=== PATIENT | female | born 1960 ===

== ENCOUNTER 2025-05-18 19:51 | Emergency (ER) | payer MEDICARE, SELFPAY ==
--- OUTSIDE RECORDS SUMMARY | 2025-05-18 19:53 | XMS_ITS | Continuity of Care Document ---
Author Organization [facility] Address [address] [place] [address] Phone Care Team Providers Care Paper Stacker Name Role Phone Unavailable Unavailable Unavailable Allergies, Adverse Reactions, Alerts Substance Reaction Status Criticality aspirin Active No Information Medications Medication Instructions Dosage Effective Dates (start - stop) Status Comments losartan 25 mg tablet take 1 tablet by o ral route every day for HTN 25 MG - Active levothyroxine 150 mcg tablet take 1 tablet by oral route every day 150 MCG - Active Miralax 17 gram/dose oral powder take (17G) by oral route every day mixed with 8 oz. water, juice, soda, coffee or tea - Active Culturelle Probiotics 10 billion cell-200 mg sprinkle capsule 2 PO daily - Active Dulcolax Stool Softener (docusate) 100 mg capsule take 1 capsule by oral route 2 times every day 100 MG - Active Procedures Procedure Date OFFICE/OUTPATIENT VISIT, EST OFFICE/OUTPATIENT VISIT, EST OFFICE/OUTPATIENT VISIT, EST OFFICE/OUTPATIENT VISIT, EST GLYCATED HEMOGLOBIN TEST OFFICE/OUTPATIENT VISIT, NEW Results Test Name Date and Time Measure Units Reference Range Abnormal Flag Status Comments Panel Description: HEPATITIS C VIRUS AB Final Ordering Provider SEE COMMENT Final Original Orderi ng Provider: SHARONA MOORE HEPATITIS C VIRUS AB 2018 09:09:0 0 SEE COMMENT Final 0.1 Negative: < 0.8 Indeterminate: 0.8 - 0.9 Positive: > 0.9 The CDC recommends that a positive HCV antibody result be followed up with a HCV Nucleic Acid Amplification test ([id number]).ORGANISM: Antibiotic LURDES InterpretationWHITE BLOOD CELL COUNT [facility] 5.5RED BLOOD CELL COUNT [facility] 4.77HEMOGLOBIN [facility] 15.2HEMATOCRIT BLOOD [facility] 44.0MCV [facility] 92MCH [facility] 31.9MCHC [facility] 34.5RDW [facility] 13.6PLATELET COUNT [facility] 275NEUTROPHILS RELATIVE AUTO [facility] 62LYMPHOCYTES RELATIVE AUTO [facility] 28MONOCYTES RELATIVE AUTO [facility] 8EOSINOPHILS RELATIVE AUTO [facility] 2BASOPHILS RELATIVE AUTO [facility] 0NEUTROPHIL ABS AUTO [facility] 3.4LYMPHOCYTE ABS AUTO [facility] 1.5MONOCYTE ABS AUTO [facility] 0.4EOSINOPHIL ABS AUTO [facility] 0.1BASOPHILS ABS AUTO [facility] 0.0IMMATURE GRANULOCYTES 0IMMATURE GRANS (ABS) 0.0ORGANISM: Antibiotic LURDES InterpretationGLUCOSE 154BUN BLOOD 13CREATININE, SERUM 0.60EGFR IF NONAFRICN AM 100EGFR AFRICANAMERICAN 115BUN / CREAT RATIO 22SODIUM 146POTASSIUM 4.1CHLORIDE 104CARBON DIOXIDE 24CALCIUM 9.9PROTEIN, TOTAL, SERUM 7.1ALBUMIN 4.2GLOBULIN, TOTAL 2.9A/G RATIO 1.4BILIRUBIN, TOTAL 0.2ALKALINE PHOSPHATASE, S 92AST (SGOT) 11ALT (SGPT) 17ORGANISM: Antibiotic LURDES InterpretationCHOLESTEROL , TOTAL 200TRIGLYCERIDES 118HDL CHOLESTEROL 51VLDL CHOLESTEROL CAITLYN 24LDL CHOLESTEROL CALC 125ORGANISM: Antibiotic LURDES InterpretationCREATININE, UR 69.0MICROALBUM.,U,RANDOM 10.0MICROALB/KINDERGARTNERS HELPER. RATIO 14.5 Normal: 0.0 - 30.0 Albuminuria: 31.0 - 300.0 Clinical albuminuria: >300.0ORGANISM: Antibiotic LURDES InterpretationHEMOGLOBIN A1C, B 7.5 Prediabetes: 5.7 - 6.4 Diabetes: >6.4 Glycemic control for adults with diabetes: <7.0ORGANISM: Antibiotic LURDES InterpretationVITAMIN D 25 HYDROXY 19.7Vitamin D deficiency has been defined by the [place] ofMedicine and an Endocrine Society practice guideline as alevel of serum 25-OH vitamin D less than 20 ng/mL (1,2).The Endocrine Society went on to further define vitamin Dinsufficiency as a level between 21 and 29 ng/mL (2).1. IOM ([place] of Medicine). 2010. Dietary reference intakes for calcium and D. [place]: The National Academies Press.2. Lynette MF, Soraya HORTON, Byron AC, et al. Evaluation, treatment, and prevention of vitamin D deficiency: an Endocrine Society clinical practice guideline. JCEM. 2010; 96(7):1911-30.ORGANISM: Antibiotic LURDES InterpretationTHYROID STIMULATING HORMONE 0.443ORGANISM: Antibiotic LURDES InterpretationT4,FREE (DIRECT) 1.61ORGANISM: Antibiotic LURDES InterpretationVITAMIN B-12 <150Performed At: 01[facility], [place] [id number] Vincent [id number] 1, Advance Directives Directive Yes / No Effective Date File Name No Information Encounters Encounter Description Practice Location Reason(s) For Visit Diagnoses Date Provider Providers Copied on Encounter Formerly [facility] [address], [facility], tel:[phone] No Information 9 No Information Formerly [facility] [address], [facility], tel:[phone] [facility] No Information 6 No Information OFFICE/OUTPA TIENT VISIT, [facility] [employer] [facility] Of [address], [facility], tel:[phone] [facility] hypertension (chief complaint)Sle ep apnea (chief complaint)con stipation (chief complaint) HypertensionSl eep apneaConstipat ion 6 No Information OFFICE/OUTPA TIENT VISIT, [facility] Of [address], [facility], tel:[phone] [facility] rash (chief complaint) Allergic contact dermatitis due to other agents 6 No Information OFFICE/OUTPA TIENT VISIT, [facility] [employer] Of [address], [address], [place] tel:[phone] [facility] hypertension (chief complaint) HypertensionAr thritisHypothy roidism 6 No Information OFFICE/OUTPA TIENT VISIT, [facility] [employer] Of [address], [address], [place] tel:[phone] [facility] hypertension (chief complaint)ank le pain (chief complaint) HypertensionSp rain of ankle, initial encounter 5 No Information OFFICE/OUTPA TIENT VISIT, [facility] [employer] [facility] Of [address], [address], [place] tel:[phone] [facility] possible diabetes (chief complaint)HTN (chief complaint) HypertensionHy pothyroidismAb normal glucoseSleep apnea 5 No Information Family History Family Member Type Diagnosis Age At Onset No Information Immunizations Vaccine Date Status Comments Influenza, injectable, quadrivalent, preservative free, 3 yrs or older refused Source: New Immuniza tion Record Payers Payer name Insurance type Covered republican ID Authoriza tion(s) No Information Social History Type Description Quantity Date Captured Comments Sex Female Smoking Status No Information Chief Complaint And Reason For Visit No Information Reason For Referral Reason For Referral No Information Plan Of Treatment Date Type Action Status Goal Td vaccine. Due on 16 due Goal Influenza vaccine. Due on due Goal Lipid panel. Due on 016 due Goal Colonoscopy. Due on 016 due Goal Mammogram. Due on 6 due Goal FOBT. Due on due Goal Pap/HPV testing. Due on due Goal Tdap. Due on due Goal Influenza vaccine. Due on due Goal Pap/HPV testing. Due on due Goal FOBT. Due on due Goal Depression screening. Due on due Goal Tdap. Due on due Goal Mammogram. Due on 6 due Goal Td vaccine. Due on 16 due Goal Lipid panel. Due on 016 due Goal Colonoscopy. Due on 016 due Referral Ordered: X-RAY EXAM OF ANKLE Right ankle ordered Referral Ordered: Referrals: Pulmonology. Evaluate and treat ordered History Of Present Illness Encounter Date Complaint History Of Prese nt Illness constipation The patient desc ribes it as feeling of fullness. Symptom is aggravated by dehydration and stress. Denies relieving factors. She is also experiencing abdominal pain, bloating and flatulence. Pertinent negatives include change in appetite, nausea and vomiting. Sleep apnea Relevant history : a BMI of 35.08 and hypertension. The apnea is worsened by stress. The patient is also experiencing insomnia, snoring (reported by pt.), snoring (reported by others) and witnessed apnea or irregular nighttime breathing. The patient denies difficulty concentrating, difficulty initiating sleep or headache. Additional information: Controlled. Pt sees pulmonology but wanted to discuss relationship with HTN and sleep. hypertension Risk factors inc lude sleep apnea. The hypertension is exacerbated by stress. Associated symptoms include fatigue. Pertinent negatives include chest pain, confusion, diaphoresis, headache, nausea, visual disturbances and vomiting. Additional information: Controlled rash The patient pres ents for rash. This episode began suddenly and has lasted 1 Day. The symptom(s) are described as mild, worse and occurs infrequently. Affected area(s) include chest, back, trunk and abdomen. The patient describes the affected area(s) as itchy. Denies relieving factors. Associated symptoms include pruritus. Pertinent negatives include bleeding, cracking, crusting, dry skin, fatigue, hypopigmentation, painful rash and pharyngitis. There are no other household members with similar symptoms. Relevant history positive for history of allergies. Relevant history negative for family history of dermatitis. Additional information: History of shingles. Rash is in different location. Pt has been working in basement moving and packing boxes. hypertension Pertinent negati ves include chest pain, dyspnea, fatigue, headache, irregular heartbeat/palpitations, nausea, visual disturbances and vomiting. Additional information: Controlled. Doing well. hypertension Pertinent negati ves include chest pain, confusion, dyspnea, headache, nausea, visual disturbances and vomiting. ankle pain Onset: 2 weeks a go. Severity level is mild-moderate. It occurs constantly and is worsening. Location: right ankle. The pain is aggravated by movement, walking and standing. The pain is relieved by rest. Associated symptoms include decreased mobility, joint tenderness, swelling and weakness. Pertinent negatives include bruising. Additional information: Fell 2 weeks ago. Ankle painful during day. possible diabetes Had previous a bnormal glucose. Pt has high BP. Sleep apnea. HTN Controlled. Pt l ooking to establish care Functional Status Date Functional Assessmen t No Information Instructions Date Instruction Additional Infor karel Treatment goal: BP under 140/90 by next visit Related to Hypertension Treatment goal: BP under 140/90 by next visit Related to Hypertension Self-mgt goal: exerc ise 5 times a week for 30 minutes Related to Hypertension DASH Diet discussed Related to H ypertension Treatment goal: BP under 140/90 by next visit Related to Hypertension Assessments Type Assessment Date No Information Patient Care Teams Name Effective Dates (start - stop) Status Members No Information
--- OUTSIDE RECORDS SUMMARY | 2025-05-18 19:53 | XMS_ITS | Clinical Summary ---
Author Organization [facility] Health Address [address] [place] [address] Care Team Providers Care Mining Speculator Name Role Phone Unavailable Primary Care Provider Unavailabl e Allergies No known active allergies Medications metFORMIN (GLUCOPHAGE) 500 mg tablet Take 500 mg by mouth in the morning and 500 mg in the evening. Take with meals. 03/13/2022 Active losartan (COZAAR) 50 mg tablet Take 50 mg by mouth 1 (one) time each day. 04/01/2022 Active levothyroxine (SYNTHROID, LEVOTHROID) 125 mcg tablet Take 125 mcg by mouth every morning. 02/02/2022 Active Active Problems No known active problems Social History Tobacco Use Types Packs/Day Years Used Date Smoking Tobacco: Never Smokeless Tobacco: Never Tobacco Cessation:Counseling Given: Not Answered Alcohol Use Standard Drinks/Week Comments Never 0 (1 standard drink = 0.6 oz pur e alcohol) Comments Unknown Sex and Gender Information Value Date Recorded Sex Assigned at Not on file Legal Sex Female 9:59 AM PDT Gender Identity Not on file Sexual Orientation Not on file Last Filed Vital Signs Vital Sign Reading Time Taken Comments Blood Pressure 134/89 05/08/2022 10:18 AM CDT Pulse 76 05/08/2022 10:18 AM CDT Temperature - - Respiratory Rate - - Oxygen Saturation - - Inhaled Oxygen Concentration - - Weight - - Height - - Body Mass Index - - Plan of Treatment Health Maintenance Due Date Last Done Comments Dental Prophylaxis 1960 Dental Oral Exam 11/08/2022 05/08/2022 Dental X-Ray: Bitewings 11/08/2022 05/08/2022 Dental X-Ray: Full Mouth 05/10/2025 05/09/2022, 04/19 Dental X-Ray: Panoramic 05/10/2025 05/09/2022, 05/08 Procedures Procedure Name Priority Date/Time Associated Diagnosis Comments PANORAMIC RADIOGRAPHIC IMAGE Routine 05/08/2022 10:15 AM CDT INTRAORAL - COMPREHENSIVE SERIES OF RADIOGRAPHIC IMAGES Routine 05/08/2022 10:15 AM CDT COMPREHENSIVE ORAL EVALUATION - NEW OR ESTABLISHED PATIENT Routine 05/08/2022 10:15 AM CDT from Last 3 Months or Most Recently Relevant to Health Maintenance Insurance [facility] [place] [id number]
--- OUTSIDE RECORDS SUMMARY | 2025-05-18 19:53 | XMS_ITS | Encounter Summary ---
Author Organization [facility] Health Address [address] [place] [address] Care Team Providers Care Detective Investigator Name Role Phone Unavailable Primary Care Provider Unavailabl e Prior Encounters Date Type Department Care Team Description 05/08/2022 Travel 05/08/2022 10:15 AM CDT Office Visit [facility] [address] [place] [address] DemetrialAshia glasgow, DDS Last Filed Vital Signs Vital Sign Reading Time Taken Comments Blood Pressure 134/89 05/08/2022 10:18 AM CDT Pulse 76 05/08/2022 10:18 AM CDT Temperature - - Respiratory Rate - - Oxygen Saturation - - Inhaled Oxygen Concentration - - Weight - - Height - - Body Mass Index - - Plan of Treatment Not on file Procedures Procedure Name Priority Date/Time Associated Diagnosis Comments PANORAMIC RADIOGRAPHIC IMAGE Routine 05/08/2022 10:15 AM CDT INTRAORAL - COMPREHENSIVE SERIES OF RADIOGRAPHIC IMAGES Routine 05/08/2022 10:15 AM CDT COMPREHENSIVE ORAL EVALUATION - NEW OR ESTABLISHED PATIENT Routine 05/08/2022 10:15 AM CDT 31 MO COMPOSITE FILLING Routine 05/08/20 22 12:00 AM CDT 30 CEREC CROWN Routine 05/08/2022 12:00 AM CDT 29 DO COMPOSITE FILLING Routine 05/08/20 22 12:00 AM CDT 20 DO COMPOSITE FILLING Routine 05/08/20 22 12:00 AM CDT 19 CEREC CROWN Routine 05/08/2022 12:00 AM CDT 18 MO COMPOSITE FILLING Routine 05/08/20 22 12:00 AM CDT 15 MO COMPOSITE FILLING Routine 05/08/20 22 12:00 AM CDT 14 PFM CROWN Routine 05/08/2022 12:00 AM CDT 14 ROOT CANAL Routine 05/08/2022 12:00 AM CDT 13 CEREC CROWN Routine 05/08/2022 12:00 AM CDT 5 DO COMPOSITE FILLING Routine 12:00 AM CDT 4 CEREC CROWN Routine 05/08/2022 12:00 AM CDT 3 MOB COMPOSITE FILLING Routine 05/08/20 12:00 AM CDT 2 O AMALGAM FILLING Routine 05/08/2022 1 2:00 AM CDT Visit Diagnoses Not on file [facility] [place] [id number]
--- OUTSIDE RECORDS SUMMARY | 2025-05-18 19:54 | XMS_ITS | Referral Summary ---
Author Organization [address] Address [facility] [place] [address] Care Team Providers Care Windows Server Engineer Name Role Phone Jhon Jang MD Primary Care Provider [phone] Encounters Date Type Department Care Team Description 05/18/2025 Telephone [facility] Cardiology [address] [place] [address] [phone] Nick Green MD 03/11/2025 10:45 AM CDT Office Visit [facility] Cardiology [address] [place] [address] [phone] Nick Green MD Atypical chest pain (Primary Dx); 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; Essential hypertension, benign; Pure hypercholesterolemia 02/16/2025 Telephone [facility] Cardiology [address] [place] [address] [phone] Nick Green MD from Last 3 Months Allergies No known active allergies Medications levothyroxine (SYNTHROID) 125 mcg tablet Take 1 tablet (125 mcg total) by mouth casing running machine tender before breakfast 2 Active metFORMIN (GLUCOPHAGE) 500 mg tablet Take 1 tablet (500 mg total) by mouth daily with breakfast 2 Active empagliflozin (JARDIANCE) 25 mg tablet 1 tablet (25 mg total) daily Active atorvastatin (LIPITOR) 40 mg tablet Take 1 tablet (40 mg total) by mouth daily Active losartan (COZAAR) 50 mg tablet Take 1 tablet (50 mg total) by mouth daily 2 Active ticagrelor (BRILINTA) 90 mg tablet Take 1 tablet (90 mg total) by mouth 2 (two) times a day 60 tablet 11 5 Active aspirin 81 mg enteric coated tabletIndication s:cardiovascular disease Take 1 tablet (81 mg total) by mouth daily 30 tablet 5 Active loperamide (IMODIUM) 2 mg capsule Take 1 capsule (2 mg total) by mouth 4 (four) times a day as needed for diarrhea 30 capsule 5 Active potassium chloride ER (KLOR-CON) 20 mEq CR tablet Take 1 tablet (20 mEq total) by mouth daily 30 tablet 5 Active benzonatate (TESSALON) 100 mg capsuleIndicatio ns:Cough Take 1 capsule (100 mg total) by mouth 3 (three) times a day as needed for cough 21 capsule 5 Active isosorbide mononitrate ER (IMDUR) 30 mg 24 hr tablet Take 1 tablet (30 mg total) by mouth daily 30 tablet [address] (PROTONIX) 40 mg EC tabletIndication s:Treatment of Non-Bleeding Gastric Disorder Take 1 tablet (40 mg total) by mouth 2 (two) times a day 60 tablet 5 Active carvediloL (COREG) 6.25 mg tablet Take 1 tablet (6.25 mg total) by mouth 2 (two) times a day with meals 60 tablet 5 Active Active Problems Problem Noted Date Diagnosed Date Intermittent left-sided chest pain 02/13/2025 Type 2 diabetes mellitus wit hout complication, without long-term current use of insulin 02/09/2025 Primary hypertension 02/09/2025 Acquired hypothyroidism 02/09/2025 Hypokalemia 02/09/2025 Dyslipidemia associated with type 2 diabetes abhilash litus 02/09/2025 NSTEMI (non-ST elevated myocardial infarction) 0 02/08/2025 Social History Tobacco Use Types Packs/Day Years Used Date Smoking Tobacco: Never Smokeless Tobacco: Never Tobacco Cessation:Counseling Given: Not Answered [facility] Utilities Answer Date Recorded In the past 12 months has [employer], [employer], oil, or water [employer] threatened to shut off services in your home? No 02/09/2025 Social Connection and Isolat ion Panel [NHANES] Answer Date Recorded In a typical week, how many times do you talk on the phone with family, friends, or neighbors? Three times a week 02/09/2025 How often do you get togethe r with friends or relatives? Three times a week 02/09/2025 How often do you attend chur ch or evangelical services? More than 4 times per year 02/09/2025 Do you belong to any clubs o r organizations such as yarsanism groups, unions, fraternal or athletic groups, or school groups? Yes 02/09/2025 How often do you attend meet ings of the clubs or organizations you belong to? More than 4 times per year 02/09/2025 Are you , , di vorced, , never , or living with a partner? 02/09/2025 AUDIT-C Answer Date Recorded Q1: How often do you have a drink containing alcohol? Never 02/09/2025 Q2: How many drinks containi ng alcohol do you have on a typical day when you are drinking? Patient does not drink Q3: How often do you have si x or more drinks on one occasion? Never 02/09/2025 Overall Financial Resource Strain (CARDIA) Answe r Date Recorded How hard is it for you to pa y for the very basics like food, housing, medical care, and heating? Not hard at all 02/09/2025 Hunger Vital Sign Answer Date Recorded Within the past 12 months, y ou worried that your food would run out before you got the money to buy more. Never true 02/10/20 Within the past 12 months, t he food you bought just didn't last and you didn't have money to get more. Never true 02/09/2025 PRAPARE - Transportation Answer Date Re corded In the past 12 months, has l ack of transportation kept you from medical appointments or from getting medications? No 01/17 In the past 12 months, has l ack of transportation kept you from meetings, work, or from getting things needed for daily living? No 02/09/2025 Housing Stability Vital Sign Answer Pancho e Recorded In the last 12 months, was t here a time when you were not able to pay the mortgage or rent on time? No 02/09/2025 In the past 12 months, how m any times have you moved where you were living? 1 02/09/2025 At any time in the past 12 m cox branson, were you homeless or living in a assisted (including now)? No 02/09/2025 Personal Safety Answer Date Recorded Have you ever been in or are you currently in a harmful physical or emotional relationship or is someone making you feel afraid or unsafe? 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 ASSISTANT Gender Identity Not on file Sexual Orientation Not on file Last Filed Vital Signs Vital Sign Reading Time Taken Comments Blood Pressure 120/78 03/11/2025 10:40 AM CDT Pulse 79 03/11/2025 10:40 AM CDT Temperature 36.9 C (98.4 F) 02/14/2025 11:35 AM CDT Respiratory Rate 18 02/14/2025 11:35 AM CDT Oxygen Saturation 96% 03/11/2025 10:40 AM CDT Inhaled Oxygen Concentration - - Weight 71.9 kg (158 lb 9.6 oz) 03/11/2025 10:40 AM CDT Height 162.6 cm (5' 4.02) 03/11/2025 10:40 AM C DT Body Mass Index 27.21 03/11/2025 10:40 AM CDT Plan of Treatment Not on file Medical Devices Implanted Type Area Special Weapons And Tactics Officer Device Identifier Shelf Expiration Date Model / Serial / Lot [employer] Medical Gilbert Angio-Seal Vip 6fr Closere Device [id number] - [id number] Implanted:Qty: 1 on 02/09/2025 by Nick Green MD at [facility] Collagen Right: Femoral [employer] Gilbert 07/28/2025 [id number] / / [id number] Medtronic Card Vasc Surgery 2.50 X 38mm Aydin [place] Rx Coronary Stent [id number] - [id number] Implanted:Qty: 1 on 02/09/2025 by Nick Green MD at [facility] Stent N/A: Coronary Medtronic Card Vasc Surgery 08/18/2027 [id number] / / [id number] Medtronic Card Vasc Surgery 3.0 X 26mm Valmora [place] Rx Coronary Stent [id number] - [id number] Implanted:Qty: 1 on 02/09/2025 by Nick Green MD at [facility] Stent N/A: Coronary Medtronic Card Vasc Surgery 07/09/2027 [id number] / / [id number] Procedures Procedure Name Priority Date/Time Associated Diagnosis Comments EGFR STAT 02/13/2025 10:02 AM CDT from Last 3 Months or Most Recently Relevant to Health Maintenance Results * eGFR (02/13/2025 10:02 AM CDT) eGFR >90 >=60 mL/min/1. 73 m2 Comment: Interpretive Data Reference Interval Normal >/= 90 mL/min/1.73m2 Mildly decreased* 60 - 89 mL/min/1.73m2 Mildly to moderately decreased 45 - 59 mL/min/1.73m2 Moderately to severely decreased 30 - 44 mL/min/1.73m2 Severely decreased 15 - 29 mL/min/1.73m2 Kidney Failure < 15 mL/min/1.73m2 *Relative to young adult level Estimated glomerular filtration rate is determined by the 2020 CKD-EPI equation recommended by the National Kidney Foundation (A Unifying Approach to GFR Estimation: Recommendations of the NKF-ASK Task Force on Reassessing the Inclusion of Race in Diagnosing Kidney Disease, JASN 202). The CKD-EPI equation should not be used for patients with unstable renal function and has not been validated in children and those over 70. Current interpretive data was last reviewed 2021. Blood 02/13/2025 10:0 2 AM CDT 02/13/2025 10:07 AM CDT us Rachele Sorensen MD LAB BLOOD ORDERABLES F inal Result [facility] [address] [facility] [place] [address] from Last 3 Months or Most Recently Relevant to Health Maintenance Insurance [employer] MEDICARE PPO Advance Directives For more information, please contact: [phone] * Full Code (Latest Code Status on File) Date Activated Date Inactivated Comments 02/13/2025 4:57 PM 02/14/2025 5:47 PM * Full Code Date Activated Date Inactivated Comments 02/08/2025 10:13 PM 02/10/2025 9:22 PM Care Teams Windows Server Engineer Relationship Specialty [place] [address] [place] [address] PCP - General Internal Medicine 02/13/25
--- OUTSIDE RECORDS SUMMARY | 2025-05-18 19:54 | XMS_ITS | Clinical Summary ---
Author Organization [facility] Address [address] [place] [address] Care Team Providers Care Tassel Snipper Name Role Phone Jhon Jang MD Primary Care Provider [phone] Medications atorvastatin (LIPITOR) 40 MG tablet Take 1 tablet (40 mg total) by mouth daily. Active levothyroxine (SYNTHROID) 125 MCG tablet Take 1 tablet (125 mcg total) by mouth daily. 5 Active Glucose Blood (BLOOD GLUCOSE TEST STRIPS) Strip 2 (two) times daily. 5 Active losartan (COZAAR) 50 MG tablet Take 0.5 tablets (25 mg total) by mouth daily. 5 Active ticagrelor (BRILINTA) 90 mg tablet Take 1 tablet (90 mg total) by mouth 2 (two) times daily. 5 Active empagliflozin (JARDIANCE) 25 MG tabletIndicatio ns:Type 2 diabetes mellitus without complication, without long-term current use of insulin ([facility] HHS/HCC) Take 1 tablet (25 mg total) by mouth daily. 30 tablet 2 5 Active aspirin EC 81 MG tablet Take 1 tablet (81 mg total) by mouth daily. Active carvedilol (COREG) 6.25 MG tabletIndicatio ns:NSTEMI (non-ST elevated myocardial infarction) ([facility] HHS/HCC) Take 1 tablet (6.25 mg total) by mouth 2 (two) times daily. 60 tablet 2 5 Active metFORMIN ER (GLUCOPHAGE-XR) 500 MG 24 hr tabletIndicatio ns:Type 2 diabetes mellitus without complication, without long-term current use of insulin ([facility]) Take 1 tablet by mouth twice daily 60 tablet 3 5 Active metFORMIN XR (GLUCOPHAGE-XR) 500 MG 24 hr tabletIndicatio ns:Type 2 diabetes mellitus without complication, without long-term current use of insulin ([facility]) Take 1 tablet (500 mg total) by mouth 2 (two) times daily. 60 tablet 2 5 05/14/20 Discontinu ed(Reorder ) Active Problems Problem Noted Date Diagnosed Date Hypotension, unspecified hypotension type 2024 Dyslipidemia associated with type 2 diabetes mellitus ([facility]) 02/09/2025 Assessment & Plan (03/22/2025 1:19 PM CDT): Continue atorvastatin 80mg daily NSTEMI (non-ST elevated myoc ardial infarction) ([facility]) 02/08/2025 Assessment & Plan (03/22/2025 1:19 PM CDT): -continue high dose statin -may consider zetia -pt had apt with cardio on 03/11/25 Pt to go back on coreg Orders: carvedilol (COREG) 6.25 MG tablet; Take 1 tablet (6.25 mg total) by mouth 2 (two) times daily. Assessment & Plan (02/16/2025 2:52 PM CDT): -continue high dose statin -may consider zetia -pt has apt with cardio in 03/11/25 Type 2 diabetes mellitus wit hout complication, without long-term current use of insulin ([facility]) 01/27/2023 Assessment & Plan (03/22/2025 1:19 PM CDT): - improving pt to follow diabetic diet - pt to continue jardiance/metformin( pt has GI upset due to IBS) - check bs daily and bring home bs recording with every f/u -discussed about benefits of glp-1 with given h/o CAD - pt declined it -may consider glimepiride in future if needed Assessment & Plan (02/23/2025 12:54 PM CDT): - pt to follow diabetic diet - pt to continue jardiance/metformin( pt has GI upset due to IBS) - check bs daily and bring home bs recording with next f/u -discussed about benefits of glp-1 with given h/o CAD - pt declined it -may consider glimepiride in future if needed Assessment & Plan (02/16/2025 2:49 PM CDT): - pt is on asa/brilinta - pt is on atorvastatin 80mg daily Pt has apt with cardio 03/11/2025 History of cholecystectomy 10/27/2018 Primary hypertension 10/27/2018 Assessment & Plan (03/22/2025 1:19 PM CDT): With h/o low bp - - pt is on coreg/losartan Pt is off of imdur Pt to continue current meds -consider to lower losartan if bp remains low Assessment & Plan (02/16/2025 2:51 PM CDT): With low bp - pt is asymptomatic - pt is on coreg/losartan/imdur Pt to continue current meds -consider to lower losartan if bp remains low Acquired hypothyroidism 10/27/2018 Assessment & Plan (03/22/2025 1:19 PM CDT): -pt is on thyroid pill Assessment & Plan (02/16/2025 2:52 PM CDT): -pt is on thyroid pill Resolved Problems Problem Noted Date Diagnosed Date Resolved Date Type 2 diabetes mellitus wit hout complications ([facility]/HCC [facility]) 10/27/2018 02/17/20 25 Encounters Date Type Department Care Team Description 03/25/2025 Scan [facility] Scanned, Doc Med Group 03/22/2025 10:40 AM CDT Office Visit [facility] Family & Internal Medicine [address] [phone] Jhon Jang MD Diabetes (4 wk f/u); Shortness Of Breath 03/22/2025 Travel 03/12/2025 Telephone [facility] [address] [phone] Jhon Jang MD Medication Request 02/23/2025 11:20 AM CDT Office Visit [facility] [address] [phone] Jhon Jang MD TCM ([facility] D/c-02/19- BP/Last . Pt was blacking out due to BP being so low. Went to ER, pt states they lessened losartan to 25 mg/) 02/23/2025 Travel 02/22/2025 Telephone [facility] [address] [phone] Jhon Jang MD TCM 02/17/2025 12:31 PM CDT - 02/17/2025 11:59 PM CDT Hospital Encounter [facility] [address] [place] [phone] Jhon Jang MD Discharge Disposition: Home or Self Care (Routine Discharge) 02/17/2025 10:20 AM CDT Laboratory Only [facility] [address] [phone] Jhon Jang MD 02/16/2025 2:20 PM CDT Office Visit [facility] & Internal [address] [phone] Jhon Jang MD Meet and Greet Provider (Est care and discuss heart attack last saturday) 02/16/2025 Travel from Last 3 Months Family History Medical History Relation Comments Hypertension Father heart condtion Father Cancer Mother Relation Status Comments Father Mother Social History Tobacco Use Types Packs/Day Years Used Date Smoking Tobacco: Never Smokeless Tobacco: Never Tobacco Cessation:Counseling Given: No Alcohol Use Standard Drinks/Week Comments Never 0 (1 standard drink = 0.6 oz pur e alcohol) PHQ-2 Answer Date Recorded Patient Health Questionnaire-2 Score 0 02/16/2025 Comments No Sex and Gender Information Value Date Recorded Sex Assigned at Female 02/08/2025 3:18 PM CDT Legal Sex Female 3:11 PM CDT Gender Identity Female 03/22/2025 10:49 AM CDT Sexual Orientation Not on file Last Filed Vital Signs Vital Sign Reading Time Taken Comments Blood Pressure 102/72 03/22/2025 10:44 AM CDT Pulse 98 03/22/2025 10:44 AM CDT Temperature 36.4 C (97.6 F) 03/22/2025 10:44 AM CDT Respiratory Rate 16 03/22/2025 10:44 AM CDT Oxygen Saturation 97% 03/22/2025 10:44 AM CDT Inhaled Oxygen Concentration - - Weight 72.6 kg (160 lb) 03/22/2025 10:44 AM CDT Height 162.6 cm (5' 4) 03/22/2025 10:44 AM CDT Body Mass Index 27.46 03/22/2025 10:44 AM CDT Plan of Treatment Upcoming Encounters Date Type Department Care Team (Late st Contact Info) Description 05/24/2025 11:20 AM CDT Office Visit [facility] Group Family & Internal Medicine - [address] [phone] Jhon Jang MD [address] [place], [place] [phone] Health Maintenance Due Date Last Done Comments Diabetes: Retinopathy Eye Exam 01/29/1978 Hepatitis C 01/29/1978 DTaP, Tdap and Td Vaccines (1 - Tdap) 01/29/1979 Pneumococcal Vaccine: 50+ Years (1 of 2 - PCV) 01/29/1979 Mammogram Screening 2000 Zoster Vaccines (1 of 2) 01/29/2010 RSV Immunization or 60+ Years (1 - Risk 60-74 years 1-dose series) 2020 COVID-19 Vaccine ( - season) 2024 Hemoglobin A1C 05/19/2025 02/17/2025, 12, 07/14/2024, Additional history exists Kidney Health Evaluation 02/17/2026 02/17/2025 Lipid Panel 02/17/2026 02/17/2025 Colorectal Cancer Screening Colonoscopy (10 Years) 03/31/2034 03/31/2024 PHQ-2 (Physician Douglas) Completed 02/16/2025 Meningococcal B Vaccine Aged Out No l onger eligible based on patient's age to complete this topic Meningococcal Vaccine Aged Out No fredis cynthia eligible based on patient's age to complete this topic RSV Immunizations Under 20 Months Aged Out No longer eligible based on patient's age to complete this topic Procedures Procedure Name Priority Date/Time Associated Diagnosis Comments COLLECTION VENOUS BLOOD VENIPUNCTURE Routine 02/17/2025 10:26 AM CDT Primary hypertension Type 2 diabetes mellitus without complication, without long-term current use of insulin ([facility] HHS/HCC) NSTEMI (non-ST elevated myocardial infarction) ([facility] HHS/HCC) Acquired hypothyroidism COMPREHENSIVE METABOLIC PANEL Routine 02/17/2025 10:16 AM CDT Primary hypertension Type 2 diabetes mellitus without complication, without long-term current use of insulin ([facility] HHS/HCC) LIPID PANEL Routine 02/17/2025 10:16 AM CDT NSTEMI (non-ST elevated myocardial infarction) ([facility] HHS/HCC) Type 2 diabetes mellitus without complication, without long-term current use of insulin ([facility] HHS/HCC) TSH W/REFLEX Routine 02/17/2025 10:16 AM CDT Type 2 diabetes mellitus without complication, without long-term current use of insulin ([facility] HHS/HCC) Acquired hypothyroidism ALBUMIN URINE RANDOM W/CREATININE Routine 02/17/2025 10:16 AM CDT Type 2 diabetes mellitus without complication, without long-term current use of insulin ([facility] HHS/HCC) HEMOGLOBIN, GLYCOSYLATED Routine 02/17/2025 10:16 AM CDT Type 2 diabetes mellitus without complication, without long-term current use of insulin ([facility] HHS/HCC) CBC W/DIFF AUTOMATED Routine 02/17/2025 10:16 AM CDT NSTEMI (non-ST elevated myocardial infarction) ([facility]) Type 2 diabetes mellitus without complication, without long-term current use of insulin ([facility]/HCC) COLONOSCOPY GENERIC (SCAN ORDER) 03/31/2024 from Last 3 Months or Most Recently Relevant to Health Maintenance Results * TSH W/REFLEX (02/17/2025 10:16 AM CDT) TSH 2.414 0.358 - 3.74 uIU/ML 02/17/2025 1:42 PM CDT [facility] Comment: HIGH DOSES OF BIOTIN MAY INTERFERE WITH THIS TEST RESULT. CORRELATION TO CLINICAL HISTORY AND PRESENTATION RECOMMENDED. FREE T4 NOT INDICATED 02/17/2025 10:1 6 AM CDT Jhon Jang MD LABORATORY Final Result [facility] [address] [place] [address], * (ABNORMAL) HEMOGLOBIN, GLYCOSYLATED (02/17/2025 10:16 AM CDT) HGB A1C 9.1(H) <5.7 % 02/17/2025 12:56 PM CDT [facility] Comment: INCREASED RISK OF DIABETES <5.7% NON-DIABETES 5.7-6.4% INCREASED RISK FOR FUTURE DIABETES > OR = 6.5 CONSISTENT WITH DIABETES STANDARDS OF MEDICAL CARE IN DIABETES-2010 DIABETES CARE, 33(SUPP 1): S1-S61,2010 ESTIMATED AVG GLUCOSE 214 mg/dL 02/17/2025 12:56 PM CDT [facility] 02/17/2025 10:1 6 AM CDT Jhon Jang MD LABORATORY Final Result Performing Organization Address [facility]/ZIP Co de Phone Number [facility] [address] [place] [address], [place] [phone] * (ABNORMAL) ALBUMIN URINE RANDOM W/CREATININE (02/17/2025 10:16 AM CDT) CREATININE (U) 12.4(L) 28 - 217 MG/DL 02/17/2025 1:30 PM CDT [facility] MICROALBUMIN (U) 0.0 <2.0 mg/dL 02/18/20 1:48 PM CDT [facility] ALBUMIN/CREAT RATIO 0.0 <30.0 MG/G 02/17/2025 1:48 PM CDT [facility] URINE SPECIMEN / Unknown 02/17/2025 10:16 AM CDT Jhon Jang MD URINE ORDERABLES Final Result Performing Organization Address [facility] Co de Phone Number [facility] [address] [place] [address], [place] [phone] * (ABNORMAL) COMPREHENSIVE METABOLIC PANEL (02/17/2025 10:16 AM CDT) GLUCOSE 151(H) 70 - 99 MG/DL 02/17/2025 1:42 PM CDT [facility] BUN 13 7 - 18 MG/DL 02/17/2025 1:42 PM CDT [facility] CREATININE S/P/B 0.57 0.55 - 1.02 MG/DL 02/17/2025 1:42 PM CDT [facility] SODIUM S/P/B 138 136 - 145 MMOL/L 02/17/2025 1:42 PM CDT [facility] POTASSIUM S/P/B 4.2 3.5 - 5.1 MMOL/L 02/17/2025 1:42 PM [facility] CHLORIDE S/P/B 101 100 - 108 MMOL/L 02/17/2025 1:42 PM [facility] CO2 27.6 21 - 32 MMOL/L 02/17/2025 1:42 PM [facility] CALCIUM S/P/B 9.5 8.5 - 10.1 MG/DL 02/17/2025 1:42 PM [facility] BILIRUBIN TOTAL S/P/B 1.0 0.2 - 1.2 MG/DL 02/17/2025 1:42 PM [facility] TOTAL PROTEIN S/P/B 6.9 6.4 - 8.2 G/DL 02/17/2025 1:42 PM [facility] ALBUMIN S/P/B 3.6 3.4 - 5.0 G/DL 02/17/2025 1:42 PM [facility] AST 10(L) 15 - 37 U/L 02/17/2025 1:42 PM [facility] ALT 25 14 - 55 U/L 02/17/2025 1:42 PM [facility] ALKALINE PHOSPHATASE S/P/B 96 50 - 136 U/L 02/17/2025 1:42 PM [facility] ANION GAP 9.4 5 - 15 MMOL/L 02/17/2025 1:42 PM [facility] BUN CREATININE RATIO 22.8 6 - 26 02/17/2025 1:42 PM [facility] A/G RATIO 1.1 1.0 - 2.0 RATIO 02/17/2025 1:42 PM [facility] GFR ESTIMATE >90 >90 ML/MIN/1.7 3 M2 02/17/2025 1:42 PM CDT [facility] Comment: NOTE: eGFR is not calculated for patients <18 years of age. This is an estimated GFR calculation using the new CKD EPI creatinine equation without race and so does not require a correction factor for race. This estimated GFR should not be used for calculating drug doses. 02/17/2025 10:1 6 AM CDT Jhon Jang MD LABORATORY Final Result [facility] [address] [place] [address], * LIPID PANEL (02/17/2025 10:16 AM CDT) CHOLESTEROL 111 <200.0 MG/DL 02/17/2025 1:42 PM CDT [facility] TRIGLYCERIDES 108 <150 MG/DL 02/17/2025 1:42 PM T [facility] HDL 45 >40.0 MG/DL 02/17/2025 1:42 PM T [facility] LDL (CALCULATED) 44 <100 MG/DL 02/18/20 1:42 PM T [facility] NON HDL CHOLESTEROL 66 <130 MG/DL 02/17 1:42 PM T [facility] CHOL/HDL RATIO 2.5 0.0 - 4.5 02/17/2025 1:42 PM T [facility] VLDL CALCULATION 22 5 - 55 MG/DL 02/17/2025 1:42 PM T [facility] LIPID INTERPRETATION 02/17/2025 1:42 PM T [facility] Comment: [facility] REPORT RECOMMENDATIONS: ADULT CHILD LOW RISK: CHOLESTEROL <200 <170 TRIGLYCERIDE <150 --- HDL >=60 --- LDL <100 <110 BORDERLINE: CHOLESTEROL 200-239 170-199 TRIGLYCERIDE 150-199 --- HDL 40-59 --- LDL 100-159 110-129 HIGH RISK: CHOLESTEROL >=240 >=200 TRIGLYCERIDE >=200 --- HDL <40 --- LDL >=160 >=130 02/17/2025 10:1 6 AM CDT Jhon Jang MD LABORATORY Final Result [facility] [address] [place] [address], * (ABNORMAL) CBC W/DIFF AUTOMATED (02/17/2025 10:16 AM CDT) WBC 7.33 4.4 - 11.0 x10'3/uL 02/17/2025 12:42 PM CDT [facility] RBC 3.84(L) 4.50 - 5.10 x10'6/uL 02/17/2025 12:42 PM CDT [facility] HGB 12.4 12.3 - 15.3 G/DL 02/17/2025 12:42 PM CDT [facility] HCT 37.8 35.9 - 44.6 % 02/17/2025 12:42 PM CDT [facility] MCV 98.4(H) 80.0 - 96.0 FL 02/17/2025 12:42 PM CDT [facility] MCH 32.3(H) 25.3 - 30.9 PG 02/17/2025 12:42 PM CDT [facility] MCHC 32.8 31.0 - 34.1 G/DL 02/17/2025 12:42 PM CDT [facility] RDW 13.2 12.4 - 15.1 % 02/17/2025 12:42 PM CDT [facility] PLT 353 151 - 353 x10'3/uL 02/17/2025 12:42 PM CDT [facility] MPV 10.3 9.6 - 12.0 FL 02/17/2025 12:42 PM CDT [facility] RBC MORPHOLOGY NORMAL 02/17/2025 12:42 PM CDT [facility] PLT MORPH. NORMAL 02/17/2025 12:42 PM T [facility] WBC MORPHOLOGY NORMAL 02/17/2025 12:42 PM CDT [facility] LYMPHOCYTES % 16.8 15.8 - 45.0 % 02/17/2025 12:42 PM T [facility] NEUTROPHILS % 72.8(H) 42.1 - 71.9 % 02/17/2025 12:42 PM CDT [facility] MONOCYTES % 6.8 5.7 - 12.5 % 02/17/2025 12:42 PM T [facility] EOSINOPHILS 2.9 0.0 - 5.6 % 02/17/2025 12:42 PM CDT [facility] BASOPHILS 0.4 0.0 - 1.3 % 02/17/2025 12:42 PM CDT [facility] ABS. NEUTROPHILS 5.34 1.40 - 6.00 x10'3/uL 02/17/2025 12:42 PM T [facility] IMMATURE GRANS % 0.3 0.0 - 0.5 % 02/17/2025 12:42 PM T [facility] ABS. LYMPHOCYTES 1.23 0.80 - 4.70 x10'3/uL 02/17/2025 12:42 PM T [facility] 02/17/2025 10:1 6 AM CDT us Jhon Jang MD LABORATORY Final Result [facility] [address] [place] [address], * COLONOSCOPY GENERIC (SCAN ORDER) (03/31/2024) 03/31/2024 us Doc Med Group Scanned SCANNING Final Resu lt from Last 3 Months or Most Recently Relevant to Health Maintenance Insurance [employer] Care Teams Tassel Snipper Relationship Specialty [place] [address] [place] [address] PCP - General INTERNAL MEDICINE 02/10/25
--- OUTSIDE RECORDS SUMMARY | 2025-05-18 19:54 | XMS_ITS | Clinical Summary ---
Author Organization [facility] [address] Address [address] [place] [phone] Care Team Providers Care Production Scheduler Name Role Phone Jhon Jang MD Primary Care Provider [phone] Allergies No known active allergies Medications levothyroxine (SYNTHROID) 125 mcg tablet Take 1 tablet (125 mcg total) by mouth state appellate clerk before breakfast 2 Active metFORMIN (GLUCOPHAGE) 500 [...] NSTEMI (non-ST elevated myocardial infarction) 0 02/08/2025 Encounters Date Type Department Care Team Description 05/18/2025 Telephone [facility] [address] [place] [address] [phone] Nick Green MD 03/11/2025 10:45 AM CDT Office Visit [facility] [address] [place] [address] [phone] Nick Green MD Atypical chest pain (Primary Dx); Coronary artery disease involving [place] coronary artery of [place] heart without angina pectoris; Essential hypertension, benign; Pure hypercholesterolemia 02/16/2025 Telephone [facility] [address] [place] [address] [phone] Nick Green MD from Last 3 Months Surgical History Surgery Date Site/Laterality Comments HYSTERECTOMY HERNIA REPAIR Hernia with mesh repair BLADDER SUSPENSION CARDIAC CATHETERIZATION 02/09/2025 N/A Procedure: LEFT HEART CATHETERIZATION WITH CORONARY ANGIOGRAPHY AND WITH OR WITHOUT LEFT VENTRICULOGRAM [id number]; Surgeon: Nick Green MD; Location: [facility] CARDIAC CORPORATE RELATIONS MANAGER; Service: Cardiovascular; Laterality: N/A; Medical devices from this surgery are in the Medical Devices section. CARDIAC CATHETERIZATION 02/09/2025 N/A Procedure: PCI CHELE MAJOR CORONARY [id number] - [id number]; Surgeon: Nick Green MD; Location: [facility] CARDIAC [facility]PORATE RELATIONS MANAGER; Service: Cardiovascular; Laterality: N/A; Medical devices from this surgery are in the Medical Devices section. Medical History Medical History Date Comments Diabetes mellitus (HCC) Hypertension IBS (irritable bowel syndrome) Family History Medical History Relation Name Comments Heart disease Father Cancer Mother Relation Name Status Comments Father Mother Social History Tobacco Use Types Packs/Day Years Used Date Smoking Tobacco: Never Smokeless Tobacco: Never Tobacco Cessation:Counseling Given: Not Answered [facility] Utilities Answer Date Recorded In the past 12 months has e [employer], gas, oil, or water [employer] threatened to shut off services in your [...] often do you attend chur ch or taoism services? More than 4 times per year 02/09/2025 Do you belong to any clubs o r organizations such as voodoo groups, unions, fraternal or athletic groups, or [...] money to buy more. Never true 02/10/20 25 Within the past 12 months, t he [...] any time in the past [address] [facility], were you homeless or living in a skilled nursing (including now)? No 02/09/2025 Personal Safety Answer Date Recorded Have you ever been in or are you currently in a harmful physical or emotional relationship or is someone making you feel afraid or unsafe? 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 Gender Identity Not on file Sexual Orientation Not on file Obstetrics History Last Filed Vital Signs Vital Sign Reading [...] 03/11/2025 10:40 AM CDT Plan of Treatment Health Maintenance Due Date Last Done Comments Albumin Creatinine Ratio, Urine 1960 Breast Cancer Screening-Mammogram 1960 Colon Cancer Screening-Colonoscopy 1960 Depression Screening 1960 Hemoglobin A1C 1960 Hepatitis C Screening 1960 Osteoporosis Screening-Bone Density Scan 1960 Dilated Eye Exam 1960 Foot Exam 1960 DTaP/Tdap/Td Vaccine (1 - Tdap) 01/29/1971 Hepatitis B Screening 01/29/1978 Pneumococcal vaccine 65+ (1 of 2 - PCV) 01/29/1979 Zoster Vaccine (1 of 2) 01/29/2010 Well Visit 65+ 01/29/2025 Influenza Vaccine (#1) 2025 eGFR 02/13/2026 02/13/2025, 01/17, 02/10/2025, Additional history exists Fall Risk Assessment 02/14/2026 02/14/2025 Lipid Panel 02/17/2026 02/17/2025 Medical Devices Implanted Type Area Forester Aide Device Identifier Shelf Expiration Date Model / Serial / Lot [employer] Angio-Seal Vip 6fr Closere Device [id number] - [id number] Implanted:Qty: 1 on 02/09/2025 by Nick Green MD at [facility] Collagen Right: Femoral [employer] 07/28/2025 [id number] / / [id number] Medtronic Card Vasc Surgery 2.50 X 38mm Aydin [employer] Rx Coronary Stent [id number] - [id number] Implanted:Qty: 1 on 02/09/2025 by Nick Green MD at [facility] Stent N/A: Coronary Med[employer]onic Card Vasc Surgery 08/18/2027 [id number] / / [id number] Medtronic Card Vasc Surgery 3.0 X 26mm [employer] Rx Coronary Stent [id number] - [id number] Implanted:Qty: 1 on 02/09/2025 by Nick Green MD at [facility] Stent N/A: Coronary [employer] Card Vasc Surgery 07/09/2027 [id number] / / [id number] Procedures Procedure Name Priority Date/Time Associated Diagnosis [...] of Race in Diagnosing Kidney Disease, JASN 2020). The CKD-EPI equation should not be used for patients with unstable renal function and has not been validated in children and those over 70. Current interpretive data was last reviewed 2021. Blood 02/13/2025 10:0 2 AM CDT 02/13/2025 10:07 AM CDT Rachele Sorensen MD LAB BLOOD ORDERABLES F inal Result [facility] [address] [facility] Department [place] [address] from Last 3 Months or Most Recently Relevant to Health Maintenance Insurance [employer] CHOICE MEDICARE PPO Advance Directives For more information, please contact: [phone] * Full Code (Latest Code Status on File) Date Activated Date Inactivated Comments 02/13/2025 4:57 PM 02/14/2025 5:47 PM * Full Code Date Activated Date Inactivated Comments 02/08/2025 10:13 PM 02/10/2025 9:22 PM Care Teams Production Scheduler Relationship Specialty [place] [address] [address] PCP - General Internal Medicine 02/13/25
--- OUTSIDE RECORDS SUMMARY | 2025-05-18 19:54 | XMS_ITS | Clinical Summary ---
Author Organization [facility] Address [address] [place] [address] Phone Care Team Providers Care Greenhouse Assistant Name Role Phone Unavailable Primary Care Provider Unavailabl e Allergies No known active allergies Medications aspirin (AIDA CHEWABLE) 81 mg Tablet, Chewable Take 81 mg by mouth daily. Active ticagrelor (Brilinta) 90 mg Tablet Take 90 mg by mouth 2 times daily. Active atorvastatin (LIPITOR) 40 mg tablet Take 40 mg by mouth daily. Active empagliflozin (Jardiance) 25 mg tablet Take 25 mg by mouth daily in the morning. Active metFORMIN (GLUCOPHAGE) 500 mg tablet Take 500 mg by mouth daily with breakfast. Active levothyroxine 125 mcg tablet Take 125 mcg by mouth daily in the morning. Active carvediloL (COREG) 6.25 mg tablet Take 6.25 mg by mouth 2 times daily with meals. Active isosorbide mononitrate (IMDUR) 30 mg Extended Release 24 hour tablet Take 30 mg by mouth daily in the morning. Active losartan (COZAAR) 50 mg tablet Take 0.5 Tablets (25 mg) by mouth daily. 30 Tablet 02/19/2025 Active Active Problems Problem Noted Date Diagnosed Date Near syncope 02/19/2025 Coronary artery disease invo lving [place] coronary artery of [place] heart without angina pectoris 02/19/2025 H/O heart artery stent 02/19/2025 Overview (02/19/2025): CHELE x2 to RCA 01/2025 Primary hypertension 02/19/2025 Type 2 diabetes mellitus wit hout complication, without long-term current use of insulin 02/19/2025 Acquired hypothyroidism 02/19/2025 Encounters Date Type Department Care Team Description 04/13/2025 External Device Data [facility] ABSTRACTION Provider, Abstract 03/23/2025 External Device Data [facility] Provider, Abstract 03/16/2025 External Device Data [facility]STRA[facility] Provider, Abstract 03/16/2025 External Device Data [facility] [place] Provider, Abstract 02/23/2025 External Device Data [facility] [place]STRACTION Provider, Abstract 02/23/2025 External Device Data [facility] [place]STRA[place] Provider, Abstract 02/23/2025 External Device Data [facility] [place]STRA[facility] Provider, Abstract 02/19/2025 Travel 02/18/2025 5:55 PM CDT - 02/19/2025 3:36 PM CDT Hospital Encounter [facility] [address] [place] [address] Jamie Hannon, DO Roman Michaels, MD Destiny Simons, Wesley Vo, Tavo Caceres MD Nuspl, Daniela Charles DO Near syncope Discharge Disposition: Home or Self Care from Last 3 Months Family History Medical History Relation Name Comments Heart Disease Father Relation Name Status Comments Father Social History Tobacco Use Types Packs/Day Years Used Date Smoking Tobacco: Never Smokeless Tobacco: Never Tobacco Cessation:Counseling Given: Not Answered Feeling Safe Answer Date Recorded Are you in a relationship wi th someone who hurts you emotionally and/or physically? No 02/18/2025 Food Insecurity Answer Date Recorded Patient needs follow up regardin 03/16/2025 Transportation Needs Answer Date Record ed Patient needs follow up regardin 03/16/2025 Housing Stability Answer Date Recorded Social/Environmental Concerns No concerns Utility Needs Answer Date Recorded Patient needs follow up regardin 03/16/2025 Comments Unknown Sex and Gender Information Value Date Recorded Sex Assigned at Not on file Legal Sex Female 5:47 PM CDT Gender Identity Not on file Sexual Orientation Not on file Last Filed Vital Signs Vital Sign Reading Time Taken Comments Blood Pressure 115/76 02/19/2025 1:15 PM CDT Pulse 67 02/19/2025 1:15 PM CDT Temperature 36.8 C (98.2 F) 02/19/2025 1:15 PM CDT Respiratory Rate 17 02/19/2025 1:15 PM CDT Oxygen Saturation 97% 02/19/2025 1:15 PM CDT Inhaled Oxygen Concentration - - Weight 72.6 kg (160 lb) 02/18/2025 5:55 PM CDT Height 162.6 cm (5' 4) 02/18/2025 5:55 PM CDT Body Mass Index 27.46 02/18/2025 5:55 PM CDT Plan of Treatment Health Maintenance Due Date Last Done Comments DIABETES ANNUAL FOOT EXAM 01/29/1978 DIABETES ANNUAL RETINAL EXAM 01/29/1978 DIABETES MICROALBUMIN ANNUAL SCREEN 01/29/1978 LDL CHOLESTEROL ANNUAL 01/29/1978 DTAP/TDAP/TD VACCINES (1 - Tdap) 01/29/1979 PNEUMOCOCCAL VACCINE 50+ YEA RS (1 of 2 - PCV) 01/29/1979 BREAST CANCER SCREENING 2000 COLORECTAL SCREENING 01/29/2005 Colorectal Cancer Screening 01/29/2005 FIT-DNA Q 3 years 01/29/2005 FIT/FOBT Q 1 year 01/29/2005 Flex Sig/CT Colonography Q 5 years 01/29/2005 ZOSTER VACCINE (1 of 2) 01/29/2010 RSV VACCINE (60+ or ) (1 - Risk 60-74 years 1-dose series) 2020 INFLUENZA VACCINE (#1) 2024 OSTEOPOROSIS SCREENING 01/29/2025 DIABETES HBA1C Q 6 MONTHS 08/19/2025 02/17/2025, 08/2024 Procedures Procedure Name Priority Date/Time Associated Diagnosis Comments TELEMETRY REPORT 02/26/2025 7:53 AM CDT TELEMETRY REPORT 02/25/2025 4:01 PM CDT POC GLUCOSE Routine 02/19/2025 11:46 AM CDT POC GLUCOSE Routine 02/19/2025 7:57 AM CDT TROPONIN 6 HR, 5TH GEN Timed Study 02/18/2025 11:45 PM CDT POC GLUCOSE Stat 02/18/2025 10:39 PM CDT TROPONIN 2 HR, 5TH GEN Timed Study 02/18/2025 9:14 PM CDT CTA CHEST W AND/OR WO CONTRAST Stat 02/18/2025 9:00 PM CDT POC CREATININE Stat 02/18/2025 7:14 PM CDT TROPONIN BASELINE, 5TH GEN Stat 02/18/2025 7:04 PM CDT TSH Stat 02/18/2025 7:04 PM CDT BRAIN NATRIURETIC PEPTIDE, BNP OR PROBNP Stat 02/18/2025 7:04 PM CDT COMPREHENSIVE METABOLIC PANEL Stat 02/18/2025 7:04 PM CDT PTT Stat 02/18/2025 7:04 PM CDT PROTIME-INR Stat 02/18/2025 7:04 PM CDT CBC WITH DIFFERENTIAL Stat 02/18/2025 7:04 PM CDT EKG 12-LEAD Stat 02/18/2025 5:53 PM CDT from Last 3 Months Results * TELEMETRY REPORT (02/26/2025 7:53 AM CDT) Only the most recent of2 resultswithin the time period is included. us Provider Scanning ECG ORDERABLES Final Result * (ABNORMAL) POC GLUCOSE (02/19/2025 11:46 AM CDT) Only the most recent of3 resultswithin the time period is included. GLUCOSE POC 135(H) 74 - 99 mg/dL 02/19/2025 11:46 AM CDT [facility] SPECIMEN SOURCE, GLUCOSE POC Whole Blood 02/19/2025 11:46 AM CDT [facility] Blood, whole 02/19/2025 11:4 6 AM CDT 02/19/2025 11:54 AM CDT Daniela Saavedra DO POINT OF CARE TESTING Final Result [facility]# [id number] [address] [place] [address] * (ABNORMAL) TROPONIN 6 HR, 5TH GEN (02/18/2025 11:45 PM CDT) TROPONIN T, 6 HR 5TH GEN 16(H) <11 ng/L 02/19/2025 1:05 AM CDT [facility] DELTA 6HR TROPONIN T -3 See Interp. 02/19/2025 1:05 AM CDT [facility] Blood Venipuncture / Unknown 02/18/2025 11:45 PM CDT 02/19/2025 12:52 AM CDT [facility] - 02/19/2025 1:05 AM CDT Troponin elevated. Delta indeterminate. Jamie Hannon DO CHEMISTRY ORDERABLES Final Result Performing Organization Address [facility] Co de Phone Number [facility]# [id number] [address] [place] [address] * (ABNORMAL) TROPONIN 2 HR, 5TH GEN (02/18/2025 9:14 PM CDT) TROPONIN T, 2 HR 5TH GEN 17(H) <=10 ng/L 02/18/2025 9:57 PM CDT [facility] DELTA 2HR TROPONIN T -2 See Interp. 02/18/2025 9:57 PM CDT [facility] Blood Venipuncture / Unknown 02/18/2025 9:14 PM CDT 02/18/2025 9:15 PM CDT [facility] - 02/18/2025 9:57 PM CDT Troponin elevated. Delta not changing. Delay in collection of timed specimen beyond recommended collection interval. Results must be interpreted in clinical context. Jamie Hannon DO CHEMISTRY ORDERABLES Final Result [facility] [id number] [address] [place] [address] * CTA CHEST W AND/OR WO CONTRAST (02/18/2025 9:00 PM CDT) Anatomical Region Laterality Modality Chest Computed Tomogra phy 02/18/2025 9:01 PM CDT Impressions 02/18/2025 9:09 PM CDT IMPRESSION: 1. No evidence of pulmonary embolism or acute pneumonia. DICTATION LOCATION: Location 1 - [facility] Narrative 02/18/2025 9:09 PM CDT EXAMINATION: CTA CHEST W AND/OR WO CONTRAST DATE: 02/18/2025 9:00 PM HISTORY: Pulmonary embolism (PE) suspected, high prob; See Reason for Exam TECHNIQUE: CT of the chest was performed following the uneventful administration of intravenous contrast (IOPAMIDOL 61 % INTRAVENOUS SOLUTION (MULTI-DOSE BULK PACK) Given:90 mL) according to angiographic protocol. The images were reconstructed in Maximum Intensity Projection (MIP) protocol using oblique projections. The examination was performed with the adjustment of mA according to the patient size and/or the use of Iterative Reconstruction Technique. CT Dose Length Product (DLP): 194.7 mGy*cm FINDINGS: No prior study is available for comparison at the time of this dictation. Vascular: There are no filling defects in the pulmonary arteries to suggest pulmonary embolism. The aorta and main pulmonary artery are normal in course and caliber. Lines/tubes: None. Heart and mediastinum: The heart is normal in size without pericardial effusion. Heavy multivessel coronary calcifications are present. Radiopaque PCI in the RCA. No enlarged mediastinal or hilar lymph nodes are seen. Lungs and Airways: The central airways are patent. The lungs are free of focal consolidation. No suspicious pulmonary nodules are seen. Pleura: No effusion, abnormal pleural thickening, or pneumothorax. Lower neck and soft tissues: The imaged thyroid gland appears normal. No axillary or subpectoral lymphadenopathy is identified. Abdomen: Imaged portions of the upper abdomen are within normal limits. Bones: No suspicious lytic or blastic lesions are seen. INCIDENTAL FINDINGS: None. Procedure Note Jai Hoskins DO - 02/18/2025 EXAMINATION: CTA CHEST W AND/OR WO CONTRAST DATE: 02/18/2025 9:00 PM HISTORY: Pulmonary embolism (PE) suspected, high prob; See Reason for Exam TECHNIQUE: CT of the chest was performed following the uneventful administration of intravenous contrast (IOPAMIDOL 61 % INTRAVENOUS SOLUTION (MULTI-DOSE BULK PACK) Given:90 mL) according to angiographic protocol. The images were reconstructed in Maximum Intensity Projection (MIP) protocol using oblique projections. The examination was performed with the adjustment of mA according to the patient size and/or the use of Iterative Reconstruction Technique. CT Dose Length Product (DLP): 194.7 mGy*cm FINDINGS: No prior study is available for comparison at the time of this dictation. Vascular: There are no filling defects in the pulmonary arteries to suggest pulmonary embolism. The aorta and main pulmonary artery are normal in course and caliber. Lines/tubes: None. Heart and mediastinum: The heart is normal in size without pericardial effusion. Heavy multivessel coronary calcifications are present. Radiopaque PCI in the RCA. No enlarged mediastinal or hilar lymph nodes are seen. Lungs and Airways: The central airways are patent. The lungs are free of focal consolidation. No suspicious pulmonary nodules are seen. Pleura: No effusion, abnormal pleural thickening, or pneumothorax. Lower neck and soft tissues: The imaged thyroid gland appears normal. No axillary or subpectoral lymphadenopathy is identified. Abdomen: Imaged portions of the upper abdomen are within normal limits. Bones: No suspicious lytic or blastic lesions are seen. INCIDENTAL FINDINGS: None. IMPRESSION: 1. No evidence of pulmonary embolism or acute pneumonia. DICTATION LOCATION: Location 1 - [facility] Jamie Hannon DO CT ORDERABLES Final Resul t * POC CREATININE (02/18/2025 7:14 PM CDT) CREATININE POC 0.60 0.50 - 1.00 mg/dL 02/18/2025 7:14 PM CDT [facility] GFR POC >60 >=60 mL/min/1.7 3 sq meter 02/18/2025 7:14 PM CDT [facility] Comment:eGFR calculated with 2020 CKD-EPI equation. Vegetarian diet, extremely high or low muscle mass, and may affect results. Cystatin C with Glomerular Filtration Rate is a suitable alternative for these patients. Blood, whole 02/18/2025 7:14 PM CDT 02/18/2025 7:23 PM CDT Jamie Hannon DO POINT OF CARE TESTING Final Result Performing Organization Address [facility]/ZIP Co de Phone Number [facility] CLIA# [id number] [address] [place], [place] [address] * (ABNORMAL) TROPONIN BASELINE, 5TH GEN (02/18/2025 7:04 PM CDT) TROPONIN T, BASELINE 5TH GEN 19(H) <=10 ng/L 02/18/2025 8:15 PM CDT [facility] Comment:Hemolysis can falsel y decrease Troponin quantitation. Blood Venipuncture / Unknown 02/18/2025 7:04 PM CDT 02/18/2025 7:14 PM CDT Narrative [facility] SERVICES - [facility] - 02/18/2025 8:15 PM CDT Troponin elevated. Jamie Hannon DO CHEMISTRY ORDERABLES Final Result Performing Organization Address [facility] Co de Phone Number [facility] CLIA# [id number] [facility] [place] [address] * (ABNORMAL) CBC WITH DIFFERENTIAL (02/18/2025 7:04 PM CDT) WBC 8.7 4.0 - 9.8 K/uL 02/18/2025 7:22 PM CDT [facility] RBC 4.05 3.90 - 4.90 M/uL 02/18/2025 7:22 PM CDT [facility] HEMOGLOBIN 13.0 11.8 - 14.8 g/dL 02/18/2025 7:22 PM CDT [facility] HEMATOCRIT 40.0 35.5 - 44.0 % 02/18/2025 7:22 PM CDT [facility] - [facility] MCV 98.8 82.0 - 99.0 fL 02/18/2025 7:22 PM CDT [facility] - [facility] MCH 32.1 27.2 - 32.6 pg 02/18/2025 7:22 PM CDT [facility] - [facility] MCHC 32.5 31.5 - 35.5 g/dL 02/18/2025 7:22 PM CDT [facility] - [facility] RDW 13.2 11.5 - 14.5 % 02/18/2025 7:22 PM CDT [facility] - [facility] RDW-STDEV 47.4 37.1 - 48.7 fL 02/18/2025 7:22 PM CDT [facility] - [facility] PLATELETS 384(H) 140 - 350 K/uL 02/18/2025 7:22 PM CDT [facility] - [facility] MPV 10.0 9.3 - 12.4 fL 02/18/2025 7:22 PM CDT [facility] - [facility] NEUTROPHILS 77 % 02/18/2025 7:22 PM CDT [facility] - [facility] LYMPHOCYTES 15 % 02/18/2025 7:22 PM CDT [facility] - . [facility] MONOCYTES 5 % 02/18/2025 7:22 PM CDT [facility] [facility] - . [facility] EOSINOPHILS 2 % 02/18/2025 7:22 PM CDT [facility] - . [facility] BASOPHILS 1 % 02/18/2025 7:22 PM CDT [facility] - . [facility] IMMATURE GRANULOCYTES 1 % 02/18/2025 7:22 PM CDT [facility] - . [facility] Comment:IG (Immature Granulo cyte) count includes Metamyelocytes, Myelocytes, and Promyelocytes NEUTROPHIL ABSOLUTE 6.64 1.90 - 7.00 K/uL 02/18/2025 7:22 PM CDT [facility] - . [facility] LYMPHOCYTE ABSOLUTE 1.33 0.70 - 4.50 K/uL 02/18/2025 7:22 PM CDT [facility] MONOCYTE ABSOLUTE 0.46 0.10 - 1.30 K/uL 02/18/2025 7:22 PM CDT [facility]ORY SERVICES [facility] EOSINOPHIL ABSOLUTE 0.16 0.00 - 0.70 K/uL 02/18/2025 7:22 PM CDT [facility]ORY SERVICES - [facility] BASOPHILS ABSOLUTE 0.04 0.00 - 0.20 K/uL 02/18/2025 7:22 PM CDT [facility]ATORY SERVICES - . [facility] IMMATURE GRANULOCYTES ABSOLUTE 0.04(H) 0.00 - 0.03 K/uL 02/18/2025 7:22 PM CDT [facility] SERVICES - [facility] Blood Venipuncture / Unknown 02/18/2025 7:04 PM CDT 02/18/2025 7:14 PM CDT Jamie Hannon DO HEMATOLOGY ORDERABLES Final Result Performing Organization Address City/[facility]/ZIP Co de Phone Number [facility] CLIA# [id number] [address] [facility] [place] [address] * PTT (02/18/2025 7:04 PM CDT) PTT 28.5 24.4 - 36.4 seconds 02/18/2025 7:36 PM CDT [facility] Comment: PTT Therapeutic Range: Heparin Level PTT (seconds) <0.10 units/mL <55.8 0.10 - 0.30 units/mL 55.8 - 74.3 0.30 - 0.70 units/mL* 74.3 - 111.2* 0.70 - 1.00 units/mL 111.2 - 138.9 *corresponds to therapeutic range for unfractionated heparin Blood Venipuncture / Unknown 02/18/2025 7:04 PM CDT 02/18/2025 7:14 PM CDT Jamie Hannon DO HEMATOLOGY ORDERABLES Final Result [facility] CLIA# [id number] [address] [place] [address] * (ABNORMAL) PROTIME-INR (02/18/2025 7:04 PM CDT) PROTIME 12.5(L) 12.7 - 15.1 Seconds 02/18/2025 7:36 PM CDT [facility] INR 0.9 0.9 - 1.1 02/18/2025 7:36 PM CDT [facility] Blood Venipuncture / Unknown 02/18/2025 7:04 PM CDT 02/18/2025 7:14 PM CDT Narrative [facility] - 02/18/2025 7:36 PM CDT INR Therapeutic Range: Adult: 2.0 - 3.0 for pulmonary embolism or prophylaxis against venous thrombosis or systemic embolization. 2.0 - 3.0 for patients with tissue heart valves. 2.5 - 3.5 for patients with mechanical heart valves or post VA. Pediatric (12 years and under): 1.5 - 3.0 Although the target range in children is not well established, INR values of 1.5 - 3.0 are recommended for most patients. Higher values have been used in children with prosthetic cardiac valves and hereditary clotting disorders. (<3 days) therapeutic ranges have not been established. Jamie Hannon DO HEMATOLOGY ORDERABLES Final Result [facility]# [id number] [address] [place] [address] * TSH (02/18/2025 7:04 PM CDT) Pathologist [facility] TSH 2.47 0.27 - 4.20 uIU/mL 02/18/2025 8:15 PM CDT [facility] Blood Venipuncture / Unknown 02/18/2025 7:04 PM CDT 02/18/2025 7:14 PM CDT Jamie Hannon DO CHEMISTRY ORDERABLES Final Result Performing Organization Address [facility]/ZIP Co de Phone Number [facility]# [id number] [address] [place] [address] * (ABNORMAL) BRAIN NATRIURETIC PEPTIDE, BNP OR PROBNP (02/18/2025 7:04 PM CDT) PROBNP, N TERMINAL 195(H) <124 pg/mL 02/18/2025 8:15 PM CDT [facility] Comment: INTERPRETIVE COMMENT based on diagnosis: Diagnostic NT pro-BNP cutoffs for Heart Failure in the absence of renal failure is suggested for the following ranges <75 years: <125 pg/mL >=75 years: <450 pg/mL Exclusionary rule out cut-point for Acute Decompensated Heart Failure(ADHF) All ages: <300 pg/mL Diagnostic NT pro-BNP cutoffs for Acute Decompensated Heart Failure(ADHF) in the absence of renal failure is suggested for the following ages <50 years: > 450 pg/mL 50-75 years: > 900 pg/mL >75 years: >1800 pg/mL Blood Venipuncture / Unknown 02/18/2025 7:04 PM CDT 02/18/2025 7:14 PM CDT Jamie Hannon DO CHEMISTRY ORDERABLES Final Result Performing Organization Address [facility] Co de Phone Number [facility]# [id number] [address] [place] [address] * (ABNORMAL) COMPREHENSIVE METABOLIC PANEL (02/18/2025 7:04 PM CDT) SODIUM 139 136 - 145 mmol/L 02/18/2025 8:16 PM CDT [facility] POTASSIUM 4.1 3.5 - 5.0 mmol/L 02/18/2025 8:16 PM CDT [facility] Comment:Moderate hemolysis p resent. Can cause significant falsely elevated result. Redraw if indicated. CHLORIDE 104 98 - 107 mmol/L 02/18/2025 8:16 PM [facility] CO2 20(L) 22 - 29 mmol/L 02/18/2025 8:16 PM [facility] CALCIUM 9.7 8.6 - 10.2 mg/dL 02/18/2025 8:16 PM [facility] BUN 13 8 - 23 mg/dL 02/18/2025 8:16 PM [facility] CREATININE 0.56 0.51 - 0.95 mg/dL 02/18/2025 8:16 PM [facility] GLUCOSE 145(H) 74 - 99 mg/dL 02/18/2025 8:16 PM [facility] TOTAL PROTEIN 7.7 6.7 - 8.6 g/dL 02/18/2025 8:16 PM [facility] ALBUMIN 4.1 3.5 - 5.2 g/dL 02/18/2025 8:16 PM [facility] BILIRUBIN TOTAL 0.5 0.2 - 1.1 mg/dL 02/18/2025 8:16 PM [facility] ALKALINE PHOSPHATASE 95 35 - 104 U/L 02/18/2025 8:16 PM [facility] . [facility] AST 02/18/2025 8:16 PM [facility] Comment:Test cannot be perfo rmed. Sample hemolysis interference above limits. Redraw if indicated. ALT 23 <34 U/L 02/18/2025 8:16 PM [facility] Comment:Hemolysis present. R esult may be falsely elevated. GFR >60 >=60 mL/min/1.7 3 sq meter 02/18/2025 8:16 PM [facility] Comment:eGFR calculated with 2020 CKD-EPI equation. Vegetarian diet, extremely high or low muscle mass, and may affect results. Cystatin C with Glomerular Filtration Rate is a suitable alternative for these patients. ANION GAP 15 8 - 16 mmol/L 02/18/2025 8:16 PM CDT [facility] Blood Venipuncture / Unknown 02/18/2025 7:04 PM CDT 02/18/2025 7:14 PM CDT Narrative [facility] - 02/18/2025 8:16 PM CDT Samples containing indocyanine green cause interferences on Total and/or Direct Bilirubin and must not be measured. 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 : 1960 Requested By: Order Number: [id number] Reading MD: Gloria Abad Measurements Intervals [place] Rate: 66 P: 52 WI: 177 QRS: 46 QRSD: 78 T: 58 QT: 415 QTc: 435 Interpretive Statements Sinus rhythm Low voltage QRS in extremity and precordial leads Nonspecific T wave changes Electronically Signed On 02-18-2025 22:07:14 CDT by Gloria Abad Procedure Note Gloria bAad MD - 02/18/2025 [place] [address] Test Date: 2025-02-18 Pat Name: LETICIA RODRIGUEZ Department: 38 Room: 27 Gender: Female 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 : 1960 Requested By: Order Number: [id number] Reading MD: Gloria Abad Measurements Intervals [place] Rate: 66 P: 52 WI: 177 QRS: 46 QRSD: 78 T: 58 QT: 415 QTc: 435 Interpretive Statements Sinus rhythm Low voltage QRS in extremity and precordial leads Nonspecific T wave changes Electronically Signed On 02-18-2025 22:07:14 CDT by Gloria Abad us Jamie Hannon DO ECG ORDERABLES Final Resul t INTERFACE SYSTEM Refer to clinic/hospital department from Last 3 Months Insurance [facility] [employer] [facility] [address] Address: [address] [address] [employer] Medicare Part D Advance Directives For more information, please contact: [phone] * Full Code (Latest Code Status on File) Date Activated Date Inactivated Comments 02/19/2025 1:21 AM 02/19/2025 5:41 PM
--- OUTSIDE RECORDS SUMMARY | 2025-05-18 19:54 | XMS_ITS | Encounter Summary ---
Author Organization [facility] Healthcare Address [address] [place] [address] Care Team Providers Care Plumber Name Role Phone Jhon Jang MD Primary Care Provider [phone] Encounter Details Date Type Department Care Team (Late st Contact Info) Description 05/18/2025 Telephone [facility] Cardiology [address] [facility] [address] [phone] Nick Green MD [address] [place] [id number] Social History Tobacco Use Types Packs/Day Years Used Date Smoking Tobacco: Never Smokeless Tobacco: Never [facility] Utilities Answer Date Recorded In the past 12 months has e electric, gas, oil, or water company threatened to shut off services in your [...] often do you attend chur ch or jewish services? More than 4 times per year 02/09/2025 Do you belong to any clubs o r organizations such as yazidi groups, unions, fraternal or athletic groups, or [...] any time in the past 12 m [facility], were you homeless or living in a penitentiary (including now)? No 02/09/2025 Personal Safety Answer Date Recorded Have you ever been in or are you currently in a harmful physical or emotional relationship or is someone making you feel afraid or unsafe? Denies 02/13/2025 Comments No Sex and Gender Information Value Date Recorded Sex Assigned at Not on file Legal Sex Female 9:29 AM PHARMACY RESOURCE TECH Gender Identity Not on file Sexual Orientation Not on file documented as of this encounter Miscellaneous Notes * Telephone Encounter - Belkis Durbin MA - 05/18/2025 4:02 PM CDT Pt returned call stating she said bruising not swelling. Advised pt that yes bruising is common with blood thinner. * Telephone Encounter - Belkis Durbin MA - 05/18/2025 2:40 PM CDT LVM advising pt the only blood thinner on her med list is ASA and Brilinta. Advised that pt could have reaction with swelling of her face, lips, tongue or throat. Pt stated she had swelling everywhere, advised pt to contact her PCP. * Telephone Encounter - Yari Perales - 05/18/2025 10:32 AM CDT Pt called wanting to know if it is normal to swell everywhere while taking blood thinners. Pt askedfor a call back. Please advise. documented in this encounter Plan of Treatment Not on file documented as of this encounter Visit Diagnoses Not on filedocumented in this encounter Care Teams Plumber Relationship Specialty [place] [id number] [facility] [address] [place] [id number] PCP - General Internal Medicine 02/13/25 documented as of this encounter
[2025-05-18 20:01] VITALS: BP 158/91; PULSE 82; RESP 14; TEMP 36.4; O2SAT 98
--- NOTE | 2025-05-18 20:07 | PC.NURSE ---
IVELISSE Villareal brought into triage room to assess pt. tongue.
--- NOTE | 2025-05-18 21:28 | ED.WOUNDLAC ---
HPI - Wound/Laceration General Chief Complaint: Wound/Laceration Stated Complaint: bleeding/ clots Time Seen by Provider: 05/18/25 21:21 Source: patient Mode of arrival: ambulatory Limitations: no limitations History of Present Illness HPI narrative: This is a 65 year old female that presents to the ER for bleeding from her tongue. Believes she may have bit it earlier today. Reports she takes Brillinta for history of CAD. Reports she has had some abnormal bruising recently. Related Data Allergies Allergy/AdvReac Type Severity Reaction Status Date / Time No Known Allergies Allergy Verified 05/18/25 20:08 Review of Systems Review of Systems: All systems reviewed & are unremarkable except as noted in HPI and below PMFSH Past Medical History Medical History (Updated 05/18/25 @ 22:15 by Kia Villareal PA-C) History of diabetes mellitus History of CAD (coronary artery disease) Family History Family History (Updated 03/30/25 @ 11:37 by Ce Arellano RN) Father Acute myocardial infarction Heart disease High cholesterol Social History Social History Smoking status: Never smoker Exam Narrative: GENERAL: Well-appearing, well-nourished, and in no acute distress. HEAD: Normocephalic, atraumatic. EYES: EOMI. ENT: Nares clear, no rhinorrhea or epistaxis. Mucous membranes moist. Oropharynx without tonsillar hypertrophy exudate or other lesions. Tongue with superficial oozing of blood from a superficial laceration CHEST: No respiratory distress. HEART: Regular rate EXTREMITIES: Normal range of motion. No edema. SKIN: Warm, dry, no rash. NEURO: No focal deficits. Alert and oriented x3. PSYCH: Normal mood and affect Course Vital Signs Vital signs: Vital Signs Temperature 97.6 F 05/18/25 20:01 Pulse Rate 82 05/18/25 20:01 Respiratory Rate 14 05/18/25 20:01 Blood Pressure 158/91 H 05/18/25 20:01 Pulse Oximetry 98 05/18/25 20:01 Oxygen Delivery Room Air 05/18/25 20:01 Temperature 97.6 F 05/18/25 20:01 Pulse Rate 82 05/18/25 20:01 Respiratory Rate 14 05/18/25 20:01 Blood Pressure 158/91 H 05/18/25 20:01 Pulse Oximetry 98 05/18/25 20:01 Oxygen Delivery Room Air 05/18/25 20:01 MDM - Wound/Laceration MDM Narrative Medical decision making narrative: Patient presents to the ER for bleeding from her tongue. Reports she believes she bit it earlier today. Bleeding stopped without intervention. She was concerned about some abnormal bruising recently. She does take Brillinta due to CAD. Hemoglobin and platelets are normal. PT and INR are normal. She is to follow up with her PCP. She was given warnings to return to the ER Differential Diagnosis Differential diagnosis: Likely laceration Lab Data Attestation: I reviewed the patient's lab results. 05/18/25 21:47 Labs: Lab Results 05/18/25 Range/Units 21:47 WBC 6.8 (4.5-10.0) K/mm3 RBC 3.91 L (4.2-5.4) M/mm3 Hgb 12.4 (12.0-15.0) g/dL Hct 38.5 (37.0-47.0) % MCV 98.5 (80-100) fl MCH 31.7 (26-34) pg MCHC 32.2 (32-36) g/dl RDW 13.5 (11.5-14.5) % Plt Count 247 (150-375) k/mm3 MPV 10.3 (7.4-10.4) fl Immature Gran % (Auto) 0.3 (0-0.5) % Neut % (Auto) 65.1 (45.5-73.1) % Lymph % (Auto) 22.9 (18.3-44.2) % [place] % (Auto) 7.6 (2.6-8.5) % Eos % (Auto) 3.8 (0-4.4) % Baso % (Auto) 0.3 (0.2-1.2) % Lymph # (Auto) 1.56 (0.9-3.2) K/mm3 [place] # (Auto) 0.5 (0.1-0.6) K/mm3 Eos # (Auto) 0.3 (0-0.3) K/mm3 Baso # (Auto) 0.0 (0.0-0.1) K/mm3 Abs Immat Gran (auto) 0.02 (0.00-0.031) K/mm3 Absolute Neuts (auto) 4.4 (1.3-6.7) K/mm3 Absolute Nucleated RBC 0.000 (0.0-0.012) K/mm3 Nucleated RBC % 0.0 (0.0-0.2) % PT 12.5 (11.1-14.7) Seconds INR 0.9 APTT 29.0 (22.3-36.8) Seconds Critical Care Time Critical Care Time Critical Care Time: No Discharge Plan Discharge Clinical Impression: Hemorrhage of tongue Patient Disposition: Home Condition: Stable Instructions: Soft Diet (ED) Additional Instructions: Return to the emergency department if you experience bleeding you are unable to control, or any other symptoms that are concerning to you. Follow up with your primary care doctor Patient Language: Kiswahili Follow-up/Referrals: Peter,Nick Chance MD [Primary Care Provider] -
--- OUTSIDE RECORDS SUMMARY | 2025-05-18 21:32 | XMS_ITS | Continuity of Care Document ---
Author Organization [facility] Address [address] [place] [address] Phone Care Team Providers Care Cloth Stock Sorter Name Role Phone Unavailable Unavailable Unavailable Allergies, Adverse Reactions, Alerts Substance Reaction Status Criticality aspirin Active No Information Medications Medication Instructions Dosage Effective Dates (start - stop) Status Comments levothyroxine 150 mcg tablet take 1 tablet by oral route every day 150 MCG - Active losartan 25 mg tablet take 1 tablet by o ral route every day for HTN 25 MG - Active Dulcolax Stool Softener (docusate) 100 mg capsule take 1 capsule by oral route 2 times every day 100 MG - Active Culturelle Probiotics 10 billion cell-200 mg sprinkle capsule 2 PO daily - Active Miralax 17 gram/dose oral powder take (17G) by oral route every day mixed with 8 oz. water, juice, soda, coffee or tea - Active Procedures Procedure Date OFFICE/OUTPATIENT VISIT, [...] with a HCV Nucleic Acid Amplification test ([id number]).ORGANISM: Antibiotic LURDES InterpretationWHITE BLOOD CELL COUNT [facility] [...] CALC 125ORGANISM: Antibiotic LURDES InterpretationCREATININE, UR 69.0MICROALBUM.,U,RANDOM 10.0MICROALB/GROCERY CLERK. RATIO 14.5 Normal: 0.0 - 30.0 Albuminuria: 31.0 - 300.0 Clinical albuminuria: >300.0ORGANISM: Antibiotic LURDES InterpretationHEMOGLOBIN A1C, B 7.5 Prediabetes: 5.7 - 6.4 Diabetes: >6.4 Glycemic control for adults with diabetes: <7.0ORGANISM: Antibiotic LURDES InterpretationVITAMIN D 25 HYDROXY 19.7Vitamin D deficiency has been defined by the [place] ofMedicine and an Endocrine Society practice guideline as alevel of serum 25-OH vitamin D less than 20 ng/mL (1,2).The Endocrine Society went on to further define vitamin Dinsufficiency as a level between 21 and 29 ng/mL (2).1. IOM ([place] of Medicine). 2010. Dietary reference intakes for calcium and D. [place]: The National Academies Press.2. Lynette MF, Soraya HORTON, Byron AC, et al. Evaluation, treatment, and prevention of vitamin D deficiency: an Endocrine Society clinical practice guideline. JCEM. 2010; 96(7):1911-30.ORGANISM: Antibiotic LURDES InterpretationTHYROID STIMULATING HORMONE 0.443ORGANISM: Antibiotic LURDES InterpretationT4,FREE (DIRECT) 1.61ORGANISM: Antibiotic LURDES InterpretationVITAMIN B-12 <150Performed At: 01[facility] [place], [place] [id number] Vincent [id number] 1, Advance Directives Directive Yes / No Effective Date File Name No Information Encounters Encounter Description Practice Location Reason(s) For Visit Diagnoses Date Provider Providers Copied on Encounter [facility] [address], [facility], tel:[phone] No Information 9 No Information [facility] Of [address], [facility], tel:[phone] [facility] No Information 6 No Information OFFICE/OUTPA TIENT VISIT, [facility] Work[facility] Of [address], [facility], tel:[phone] [facility] hypertension (chief complaint)Sle ep apnea (chief complaint)con stipation (chief complaint) HypertensionSl eep apneaConstipat ion 6 No Information OFFICE/OUTPA TIENT VISIT, [facility] Of [address], [facility], tel:[phone] [facility] rash (chief complaint) Allergic contact dermatitis due to other agents 6 No Information OFFICE/OUTPA TIENT VISIT, [facility] Work[facility] Of [address], [address], [place] tel:[phone] [facility] hypertension (chief complaint) HypertensionAr thritisHypothy roidism 6 No Information OFFICE/OUTPA TIENT VISIT, [facility] Private [facility] Worker Of [address], [address], [place] tel:[phone] [facility] hypertension (chief complaint)ank le pain (chief complaint) HypertensionSp rain of ankle, initial encounter 5 No Information OFFICE/OUTPA TIENT VISIT, [facility] Private Household Worker Of [address], [address], [place] tel:[phone] [facility] possible diabetes (chief complaint)HTN (chief complaint) HypertensionHy pothyroidismAb normal glucoseSleep apnea 5 No Information Family History Family Member Type Diagnosis Age At Onset No Information Immunizations Vaccine Date Status Comments Influenza, injectable, quadrivalent, preservative free, 3 yrs or older refused Source: New Immuniza tion Record Payers Payer name Insurance type Covered constitution party ID Authoriza tion(s) No Information Social History Type Description Quantity Date Captured Comments Sex Female Smoking Status No Information Chief Complaint And Reason For Visit No Information Reason For Referral Reason For Referral No Information Plan Of Treatment Date Type Action Status Goal Tdap. Due on due Goal Mammogram. Due on 6 due Goal Td vaccine. Due on 16 due Goal Lipid panel. Due on 016 due Goal Colonoscopy. Due on 016 due Goal Influenza vaccine. Due on due Goal Pap/HPV testing. Due on due Goal FOBT. Due on due Goal Colonoscopy. Due on 016 due Goal Td vaccine. Due on 16 due Goal Influenza vaccine. Due on Ap due Goal Tdap. Due on due Goal FOBT. Due on due Goal Lipid panel. Due on 016 due Goal Mammogram. Due on 6 due Goal Pap/HPV testing. Due on due Goal Depression screening. Due on due Referral Ordered: X-RAY EXAM OF ANKLE Right ankle ordered Referral Ordered: Referrals: Pulmonology. Evaluate and treat ordered History Of Present Illness Encounter Date Complaint History Of Prese nt Illness hypertension Risk factors inc lude sleep apnea. The hypertension is exacerbated by stress. Associated symptoms include fatigue. Pertinent negatives include chest pain, confusion, diaphoresis, headache, nausea, visual disturbances and vomiting. Additional information: Controlled Sleep apnea Relevant history : a BMI of 35.08 and hypertension. The apnea is worsened by stress. The patient is also experiencing insomnia, snoring (reported by pt.), snoring (reported by others) and witnessed apnea or irregular nighttime breathing. The patient denies difficulty concentrating, difficulty initiating sleep or headache. Additional information: Controlled. Pt sees pulmonology but wanted to discuss relationship with HTN and sleep. constipation The patient desc ribes it as feeling of fullness. Symptom is aggravated by dehydration and stress. Denies relieving factors. She is also experiencing abdominal pain, bloating and flatulence. Pertinent negatives include change in appetite, nausea and vomiting. rash The patient pres ents for rash. [...] and vomiting. Additional information: Controlled. Doing well. ankle pain Onset: 2 weeks a go. Severity level is mild-moderate. It occurs constantly and is worsening. Location: right ankle. The pain is aggravated by movement, walking and standing. The pain is relieved by rest. Associated symptoms include decreased mobility, joint tenderness, swelling and weakness. Pertinent negatives include bruising. Additional information: Fell 2 weeks ago. Ankle painful during day. hypertension Pertinent negati ves include chest pain, confusion, dyspnea, headache, nausea, visual disturbances and vomiting. possible diabetes Had previous a bnormal glucose. Pt has high BP. Sleep apnea. HTN Controlled. Pt l ooking to establish care Functional Status Date Functional Assessmen t No Information Instructions Date Instruction Additional Infor karel Treatment goal: BP under 140/90 by next visit Related to Hypertension Self-mgt goal: exerc ise 5 times a week for 30 minutes Related to Hypertension Treatment goal: BP under 140/90 by next visit Related to Hypertension Treatment goal: BP under 140/90 by next visit Related to Hypertension DASH Diet discussed Related to H ypertension Assessments Type Assessment Date No Information Patient Care Teams Name Effective Dates (start - stop) Status Members No Information
--- OUTSIDE RECORDS SUMMARY | 2025-05-18 21:32 | XMS_ITS | Clinical Summary ---
Author Organization [facility] Address [address] [place] [address] Care Team Providers Care Ice Cream Dipper Name Role Phone Unavailable Primary Care Provider [...] Most Recently Relevant to Health Maintenance Insurance [facility] [place] [id number]
--- OUTSIDE RECORDS SUMMARY | 2025-05-18 21:32 | XMS_ITS | Clinical Summary ---
Author Organization [facility] Address [address] [place] [address] Phone Care Team Providers Care Senior Engineering Technician Name Role Phone Unavailable Primary Care Provider [...] syncope 02/19/2025 Coronary artery disease [place] coronary artery of [place] heart without angina pectoris 02/19/2025 H/O heart [...] - 02/19/2025 3:36 PM CDT Hospital Encounter [facility] [address] [place] [address] Jamie Hannon, DO Roman Michaels, [...] - 99 mg/dL 02/19/2025 11:46 AM CDT [facility] SPECIMEN SOURCE, GLUCOSE POC Whole Blood 02/19/2025 11:46 AM CDT [facility] Blood, whole 02/19/2025 11:4 6 AM CDT 02/19/2025 11:54 AM CDT Daniela Saavedra DO POINT OF CARE TESTING Final Result [facility] [employer] [facility]# [id number] [address] [place] [address] * (ABNORMAL) TROPONIN 6 HR, 5TH GEN (02/18/2025 11:45 PM CDT) TROPONIN T, 6 HR 5TH GEN 16(H) <11 ng/L 02/19/2025 1:05 AM CDT [facility] [employer] [facility] DELTA 6HR TROPONIN T -3 See Interp. 02/19/2025 1:05 AM CDT [facility] [employer] [facility] Blood Venipuncture / Unknown 02/18/2025 11:45 PM CDT 02/19/2025 12:52 AM CDT [facility] [employer] [facility] - 02/19/2025 1:05 AM CDT Troponin elevated. Delta indeterminate. Jamie Hannon DO CHEMISTRY ORDERABLES Final Result Performing Organization Address [facility] Co de Phone Number [facility] [employer] [facility]# [id number] [address] [place] [address] * (ABNORMAL) TROPONIN 2 HR, 5TH GEN (02/18/2025 9:14 PM CDT) TROPONIN T, 2 HR 5TH GEN 17(H) <=10 ng/L 02/18/2025 9:57 PM CDT [email or web address] DELTA 2HR TROPONIN T -2 See Interp. 02/18/2025 9:57 PM CDT [facility] [employer] [facility] Blood Venipuncture / Unknown 02/18/2025 9:14 PM CDT 02/18/2025 9:15 PM CDT [facility] - 02/18/2025 9:57 PM CDT Troponin elevated. Delta not changing. Delay in collection of timed specimen beyond recommended collection interval. Results must be interpreted in clinical context. Jamie Hannon DO CHEMISTRY ORDERABLES Final Result [facility] SERVICES[facility]# [id number] [address] [place] [address] * CTA CHEST W AND/OR WO CONTRAST (02/18/2025 9:00 PM CDT) Anatomical Region Laterality Modality Chest Computed Tomogra phy 02/18/2025 9:01 PM CDT Impressions 02/18/2025 9:09 PM CDT IMPRESSION: 1. No evidence of pulmonary embolism or acute pneumonia. DICTATION LOCATION: Location 1 - [facility] Narrative 02/18/2025 9:09 PM CDT EXAMINATION: CTA [...] acute pneumonia. DICTATION LOCATION: Location 1 - [facility] Jamie Hannon DO CT ORDERABLES Final Resul t * POC CREATININE (02/18/2025 7:14 PM CDT) CREATININE POC 0.60 0.50 - 1.00 mg/dL 02/18/2025 7:14 PM CDT [facility] [employer] [facility] GFR POC >60 >=60 mL/min/1.7 3 sq meter 02/18/2025 7:14 PM CDT [facility] [employer] [facility] Comment:eGFR calculated with 2020 CKD-EPI equation. Vegetarian diet, extremely high or low muscle mass, and may affect results. Cystatin C with Glomerular Filtration Rate is a suitable alternative for these patients. Blood, whole 02/18/2025 7:14 PM CDT 02/18/2025 7:23 PM CDT Jamie Hannon DO POINT OF CARE TESTING Final Result Performing Organization Address [facility]/ZIP Co de Phone Number [facility] CLIA# [id number] [address] [place], [place] [address] * (ABNORMAL) TROPONIN BASELINE, 5TH GEN (02/18/2025 7:04 PM CDT) TROPONIN T, BASELINE 5TH GEN 19(H) <=10 ng/L 02/18/2025 8:15 PM CDT [employer] [facility] Comment:Hemolysis can falsel y decrease Troponin quantitation. Blood Venipuncture / Unknown 02/18/2025 7:04 PM CDT 02/18/2025 7:14 PM CDT Narrative [facility] SERVICES - [facility] - 02/18/2025 8:15 PM CDT Troponin elevated. Jamie Hannon DO CHEMISTRY ORDERABLES Final Result Performing Organization Address [facility] Co de Phone Number [facility] CLIA# [id number] [place] [address] * (ABNORMAL) CBC WITH DIFFERENTIAL (02/18/2025 7:04 PM CDT) WBC 8.7 4.0 - 9.8 K/uL 02/18/2025 7:22 PM CDT [employer] [facility] RBC 4.05 3.90 - 4.90 M/uL 02/18/2025 7:22 PM CDT [employer] [facility] HEMOGLOBIN 13.0 11.8 - 14.8 g/dL 02/18/2025 7:22 PM CDT [facility] - [facility] HEMATOCRIT 40.0 35.5 - 44.0 % 02/18/2025 7:22 PM CDT [employer] [facility] - [facility] MCV 98.8 82.0 - 99.0 fL 02/18/2025 7:22 PM CDT [employer] [facility] - [facility] MCH 32.1 27.2 - 32.6 pg 02/18/2025 7:22 PM CDT [employer] [facility] - [facility] MCHC 32.5 31.5 - 35.5 g/dL 02/18/2025 7:22 PM CDT [employer] [facility] - [facility] RDW 13.2 11.5 - 14.5 % 02/18/2025 7:22 PM CDT [employer] [facility] - [facility] RDW-STDEV 47.4 37.1 - 48.7 fL 02/18/2025 7:22 PM CDT [employer] [facility]ORATORY SERVICES - [facility] PLATELETS 384(H) 140 - 350 K/uL 02/18/2025 7:22 PM CDT [employer] [facility] - [facility] MPV 10.0 9.3 - 12.4 fL 02/18/2025 7:22 PM CDT [employer] [facility] SERVICES - [facility] NEUTROPHILS 77 % 02/18/2025 7:22 PM CDT [employer] [facility] - [facility] LYMPHOCYTES 15 % 02/18/2025 7:22 PM CDT [employer] LABORATORY SERVICES - . [facility] MONOCYTES 5 % 02/18/2025 7:22 PM CDT [employer] LABORATORY SERVICES - . [facility] EOSINOPHILS 2 % 02/18/2025 7:22 PM CDT [employer] [facility] SERVICES - . [facility] BASOPHILS 1 % 02/18/2025 7:22 PM CDT [employer] LABORATORY SERVICES - . [facility] IMMATURE GRANULOCYTES 1 % 02/18/2025 7:22 PM CDT [employer] [facility]ORATORY SERVICES - . [facility] Comment:IG (Immature Granulo cyte) count includes Metamyelocytes, Myelocytes, and Promyelocytes NEUTROPHIL ABSOLUTE 6.64 1.90 - 7.00 K/uL 02/18/2025 7:22 PM CDT [employer] [facility]ORATORY SERVICES - . [facility] LYMPHOCYTE ABSOLUTE 1.33 0.70 - 4.50 K/uL 02/18/2025 7:22 PM CDT [facility] - [facility] MONOCYTE ABSOLUTE 0.46 0.10 - 1.30 K/uL 02/18/2025 7:22 PM CDT [facility] SERVICES - [facility] EOSINOPHIL ABSOLUTE 0.16 0.00 - 0.70 K/uL 02/18/2025 7:22 PM CDT [facility] SERVICES - [facility] BASOPHILS ABSOLUTE 0.04 0.00 - 0.20 K/uL 02/18/2025 7:22 PM CDT [facility] SERVICES - . [facility] IMMATURE GRANULOCYTES ABSOLUTE 0.04(H) 0.00 - 0.03 K/uL 02/18/2025 7:22 PM CDT [facility] SERVICES - [facility] Blood Venipuncture / Unknown 02/18/2025 7:04 PM CDT 02/18/2025 7:14 PM CDT Jamie Hannon DO HEMATOLOGY ORDERABLES Final Result Performing Organization Address City/[facility]/ZIP Co de Phone Number [facility] CLIA# [id number] [address] [facility] [place] [address] * PTT (02/18/2025 7:04 PM CDT) PTT 28.5 24.4 - 36.4 seconds 02/18/2025 7:36 PM CDT [facility] Comment: PTT Therapeutic Range: Heparin Level PTT (seconds) <0.10 units/mL <55.8 0.10 - 0.30 units/mL 55.8 - 74.3 0.30 - 0.70 units/mL* 74.3 - 111.2* 0.70 - 1.00 units/mL 111.2 - 138.9 *corresponds to therapeutic range for unfractionated heparin Blood Venipuncture / Unknown 02/18/2025 7:04 PM CDT 02/18/2025 7:14 PM CDT Jamie Hannon DO HEMATOLOGY ORDERABLES Final Result [facility] CLIA# [id number] [address] [place] [address] * (ABNORMAL) PROTIME-INR (02/18/2025 7:04 PM CDT) PROTIME 12.5(L) 12.7 - 15.1 Seconds 02/18/2025 7:36 PM CDT [facility] INR 0.9 0.9 - 1.1 02/18/2025 7:36 PM CDT [facility] Blood Venipuncture / Unknown 02/18/2025 7:04 PM CDT 02/18/2025 7:14 PM CDT Narrative [facility] - 02/18/2025 7:36 PM CDT INR Therapeutic Range: Adult: 2.0 - 3.0 for pulmonary embolism or prophylaxis against venous thrombosis or systemic embolization. 2.0 - 3.0 for patients with tissue heart valves. 2.5 - 3.5 for patients with mechanical heart valves or post MS. Pediatric (12 years and under): 1.5 - 3.0 Although the target range in children is not well established, INR values of 1.5 - 3.0 are recommended for most patients. Higher values have been used in children with prosthetic cardiac valves and hereditary clotting disorders. (<3 days) therapeutic ranges have not been established. Jamie Hannon DO HEMATOLOGY ORDERABLES Final Result [facility]# [id number] [address] [place] [address] * TSH (02/18/2025 7:04 PM CDT) Pathologist [facility] TSH 2.47 0.27 - 4.20 uIU/mL 02/18/2025 8:15 PM CDT [facility] Blood Venipuncture / Unknown 02/18/2025 7:04 PM CDT 02/18/2025 7:14 PM CDT Jamie Hannon DO CHEMISTRY ORDERABLES Final Result Performing Organization Address [facility]/ZIP Co de Phone Number [facility]# [id number] [address] [place] [address] * (ABNORMAL) BRAIN NATRIURETIC PEPTIDE, BNP OR PROBNP (02/18/2025 7:04 PM CDT) PROBNP, N TERMINAL 195(H) <124 pg/mL 02/18/2025 8:15 PM CDT [facility] Comment: INTERPRETIVE COMMENT based on diagnosis: Diagnostic [...] CHEMISTRY ORDERABLES Final Result Performing Organization Address [facility] Co de Phone Number [facility] [employer] [facility]# [id number] [address] [place] [address] * (ABNORMAL) COMPREHENSIVE METABOLIC PANEL (02/18/2025 7:04 PM CDT) SODIUM 139 136 - 145 mmol/L 02/18/2025 8:16 PM CDT [facility] POTASSIUM 4.1 3.5 - 5.0 mmol/L 02/18/2025 8:16 PM CDT [facility] Comment:Moderate hemolysis p resent. Can cause significant falsely elevated result. Redraw if indicated. CHLORIDE 104 98 - 107 mmol/L 02/18/2025 8:16 PM [facility] SERVICES [facility] CO2 20(L) 22 - 29 mmol/L 02/18/2025 8:16 PM [facility]ATORY [facility] CALCIUM 9.7 8.6 - 10.2 mg/dL 02/18/2025 8:16 PM [facility]ORY [facility] BUN 13 8 - 23 mg/dL 02/18/2025 8:16 PM [facility] LABORATORY [facility] - . [facility] CREATININE 0.56 0.51 - 0.95 mg/dL 02/18/2025 8:16 PM [facility] LABORATORY [facility] GLUCOSE 145(H) 74 - 99 mg/dL 02/18/2025 8:16 PM [facility] TOTAL PROTEIN 7.7 6.7 - 8.6 g/dL 02/18/2025 8:16 PM [facility]ORY [facility]. [facility] ALBUMIN 4.1 3.5 - 5.2 g/dL 02/18/2025 8:16 PM [facility] LABORATORY [facility] BILIRUBIN TOTAL 0.5 0.2 - 1.1 mg/dL 02/18/2025 8:16 PM [facility]ORY [facility] ALKALINE PHOSPHATASE 95 35 - 104 U/L 02/18/2025 8:16 PM [facility] LABORATORY [facility] - . [facility] AST 02/18/2025 8:16 PM [facility] Comment:Test cannot be perfo rmed. Sample hemolysis interference above limits. Redraw if indicated. ALT 23 <34 U/L 02/18/2025 8:16 PM [facility] Comment:Hemolysis present. R esult may be falsely elevated. GFR >60 >=60 mL/min/1.7 3 sq meter 02/18/2025 8:16 PM [facility] Comment:eGFR calculated with 2020 CKD-EPI equation. Vegetarian diet, extremely high or low muscle mass, and may affect results. Cystatin C with Glomerular Filtration Rate is a suitable alternative for these patients. ANION GAP 15 8 - 16 mmol/L 02/18/2025 8:16 PM CDT [facility] Blood Venipuncture / Unknown 02/18/2025 7:04 PM CDT 02/18/2025 7:14 PM CDT Narrative [facility] - 02/18/2025 8:16 PM CDT Samples containing indocyanine green cause interferences on Total and/or Direct Bilirubin and must not be measured. Jamie Hannon DO CHEMISTRY ORDERABLES Final Result [facility] CLIA# [id number] [address] [place] [address] * EKG 12-LEAD (02/18/2025 5:53 PM CDT) 02/18/2025 5:53 PM CDT Narrative INTERFACE SYSTEM - 02/18/2025 10:07 [place] [address] Test Date: 2025-02-18 Pat Name: LETICIA RODRIGUEZ Department: 38 Room: 27 Gender: Female Home Office Claims Examiner: zainab : 1960 Requested By: Order Number: [id number] Reading MD: Gloria Abad Measurements Intervals [place] Rate: 66 P: 52 DE: 177 QRS: 46 QRSD: 78 T: 58 QT: 415 QTc: 435 Interpretive Statements Sinus rhythm Low voltage QRS in extremity and precordial leads Nonspecific T wave changes Electronically Signed On 02-18-2025 22:07:14 CDT by Gloria Abad Procedure Note Gloria Abad MD - 02/18/2025 [place] [address] Test Date: 2025-02-18 Pat Name: LETICIA RODRIGUEZ Department: 38 Room: 27 Gender: Female Home Office Claims Examiner: zainab : 1960 Requested By: Order Number: [id number] Reading MD: Gloria Abad Measurements Intervals [place] Rate: 66 P: 52 DE: 177 QRS: 46 QRSD: 78 T: 58 QT: 415 QTc: 435 Interpretive Statements Sinus rhythm Low voltage QRS in extremity and precordial leads Nonspecific T wave changes Electronically Signed On 02-18-2025 22:07:14 CDT by Gloria Abad us Jamie Hannon DO ECG ORDERABLES Final Resul t INTERFACE SYSTEM Refer to clinic/hospital department from Last 3 Months Insurance [facility] Document [employer] [facility] [employer] Medicare Part D Advance Directives For more information, please contact: [phone] * Full Code (Latest Code Status on File) Date Activated Date Inactivated Comments 02/19/2025 1:21 AM 02/19/2025 5:41 PM
--- OUTSIDE RECORDS SUMMARY | 2025-05-18 21:32 | XMS_ITS | Clinical Summary ---
Author Organization [facility] [address] [place] Address [address] [place] [address] Care Team Providers Care Police District Switchboard Operator Name Role Phone Jhon Jang MD Primary Care Provider [phone] Allergies No known active allergies Medications levothyroxine (SYNTHROID) 125 mcg tablet Take 1 tablet (125 mcg total) by mouth paper coater before breakfast 2 Active metFORMIN (GLUCOPHAGE) 500 [...] Type Department Care Team Description 05/18/2025 Telephone [facility] Cardiology [address] [place] [address] [address] Nick Green MD 03/11/2025 10:45 AM CDT Office Visit [facility] Cardiology [address] [place] [address] [address] Nick Green MD Atypical chest pain (Primary Dx); Coronary artery disease involving [place] coronary artery of [place] heart without angina pectoris; Essential hypertension, benign; Pure hypercholesterolemia 02/16/2025 Telephone [facility] Cardiology [address] [place] [address] [address] Nick Green MD from Last 3 Months Surgical History Surgery Date Site/Laterality Comments HYSTERECTOMY HERNIA REPAIR Hernia with mesh repair BLADDER SUSPENSION CARDIAC CATHETERIZATION 02/09/2025 N/A Procedure: LEFT HEART CATHETERIZATION WITH CORONARY ANGIOGRAPHY AND WITH OR WITHOUT LEFT VENTRICULOGRAM [id number]; Surgeon: Nick Green MD; 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 No 02/09/2025 Personal Safety Answer Date Recorded Have you ever been in or are you currently in a harmful physical or emotional relationship or is someone making you feel afraid or unsafe? 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 Gender Identity Not on file Sexual Orientation [...] 02/17/2026 02/17/2025 Medical Devices Implanted Type Area Cracking And Fanning Machine Operator Device Identifier Shelf Expiration Date Model / Serial / Lot [employer] Angio-Seal Vip 6fr Closere Device [id number] - [id number] Implanted:Qty: 1 on 02/09/2025 by Nick Green MD at [facility] Collagen Right: Femoral [employer] 07/28/2025 [id number] / / [id number] [employer]onic Card Vasc Surgery 2.50 X 38mm [employer] [place] Rx Coronary Stent [id number] - [id number] Implanted:Qty: 1 on 02/09/2025 by Nick Green MD at [facility] Stent N/A: Coronary [employer] Card Vasc Surgery 08/18/2027 [id number] / / [id number] [employer] Card Vasc Surgery 3.0 X 26mm [employer] [place] Rx Coronary Stent [id number] - [id number] Implanted:Qty: 1 on 02/09/2025 by Nick Green MD at [facility] Stent N/A: Coronary [employer] Card Vasc Surgery 07/09/2027 [id number] / / [id number] Procedures Procedure Name Priority Date/Time Associated Diagnosis [...] LAB BLOOD ORDERABLES F inal Result [facility] [address] [facility] Department [place] [address] from Last 3 Months or Most Recently Relevant to Health Maintenance Insurance [employer] CHO[employer] MEDICARE PPO Advance Directives For more information, please contact: [phone] * Full Code (Latest Code Status on File) Date Activated Date Inactivated Comments 02/13/2025 4:57 PM 02/14/2025 5:47 PM * Full Code Date Activated Date Inactivated Comments 02/08/2025 10:13 PM 02/10/2025 9:22 PM Care Teams Police District Switchboard Operator Relationship Specialty [place] [id number] [address] PCP - General Internal Medicine 02/13/25
--- OUTSIDE RECORDS SUMMARY | 2025-05-18 21:32 | XMS_ITS | Encounter Summary ---
Author Organization [facility] Health Address [address] [place] [address] Care Team Providers Care Exhibit Display Representative Name Role Phone Unavailable Primary Care Provider Unavailabl e Prior Encounters Date Type Department Care Team Description 05/08/2022 Travel 05/08/2022 10:15 AM CDT Office Visit [facility] [address] [place] [address] DemetrialAshia glasgow, DDS Last Filed [...] CDT Visit Diagnoses Not on file [facility] [place] [id number]
--- OUTSIDE RECORDS SUMMARY | 2025-05-18 21:32 | XMS_ITS | Referral Summary ---
Author Organization [address] Address [facility] [place] [address] Care Team Providers Care Paint Line Operator Name Role Phone Jhon Jang MD Primary Care Provider [phone] Encounters Date Type Department Care Team Description 05/18/2025 Telephone [facility] Cardiology [address] [place] [address] [phone] Nick Green MD 03/11/2025 10:45 AM CDT Office Visit [facility] Cardiology [address] [place] [address] [phone] Nick Green MD Atypical chest pain (Primary Dx); Coronary artery disease involving [place] coronary artery of k[place]ai heart without angina pectoris; Essential hypertension, benign; Pure hypercholesterolemia 02/16/2025 Telephone [facility] Cardiology [address] [place] [address] [address] Nick Green MD from Last 3 Months Allergies No known active allergies Medications levothyroxine (SYNTHROID) 125 mcg tablet Take 1 tablet (125 mcg total) by mouth lighting director before breakfast 2 Active metFORMIN (GLUCOPHAGE) 500 [...] Tobacco: Never Tobacco Cessation:Counseling Given: Not Answered [facility] Utilities Answer Date Recorded In the past 12 months has [employer], [employer], oil, or water [employer] threatened to shut off services in your [...] often do you attend chur ch or congregational services? More than 4 times per year 02/09/2025 Do you belong to any clubs o r organizations such as presybeterian groups, unions, fraternal or athletic groups, or [...] any time in the past 12 m [facility], were you homeless or living in a chcf (including now)? No 02/09/2025 Personal Safety Answer Date Recorded Have you ever been in or are you currently in a harmful physical or emotional relationship or is someone making you feel afraid or unsafe? 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 Collagen Right: Femoral Ter[employer] Gilbert 07/28/2025 [id number] / / [id number] Medtronic Card Vasc Surgery 2.50 X 38mm Aydin Lutsen Rx Coronary Stent [id number] - [id number] Implanted:Qty: 1 on 02/09/2025 by Nick Green MD at [facility] Stent N/A: Coronary Medtronic Card Vasc Surgery 08/18/2027 [id number] / / [id number] Medtronic Card Vasc Surgery 3.0 X 26mm Cove Lutsen Rx Coronary Stent [id number] - [id number] Implanted:Qty: 1 on 02/09/2025 by Nick Green MD at [facility] Stent N/A: Coronary Medtronic Card Vasc Surgery 07/09/2027 [id number] / / [id number] Procedures Procedure Name Priority Date/Time Associated Diagnosis [...] LAB BLOOD ORDERABLES F inal Result ELROY [address] [facility] Department [place] [address] from Last 3 Months or Most Recently Relevant to Health Maintenance Insurance [employer] CHOICE MEDICARE PPO Advance Directives For more information, please contact: [phone] * Full Code (Latest Code Status on File) Date Activated Date Inactivated Comments 02/13/2025 4:57 PM 02/14/2025 5:47 PM * Full Code Date Activated Date Inactivated Comments 02/08/2025 10:13 PM 02/10/2025 9:22 PM Care Teams Paint Line Operator Relationship Specialty [place] [address] [place] [address] PCP - General Internal Medicine 02/13/25
--- OUTSIDE RECORDS SUMMARY | 2025-05-18 21:32 | XMS_ITS | Encounter Summary ---
Author Organization [facility] Address [address] [place] [address] Care Team Providers Care Ground Crew Lines Person Name Role Phone Jhon Jang MD Primary Care Provider [phone] Encounter Details Date Type Department Care Team (Late st Contact Info) Description 05/18/2025 Telephone [facility] Cardiology [address] [facility] [address] [address] Nick Green MD [address] [place] [address] Social History Tobacco Use Types Packs/Day Years Used Date Smoking Tobacco: Never Smokeless Tobacco: Never [facility] Utilities Answer Date Recorded In the [...] often do you attend chur ch or alevism services? More than 4 times per year 02/09/2025 Do you belong to any clubs o r organizations such as rastafarian groups, unions, fraternal or athletic groups, or [...] any time in the past 12 m [facility], were you homeless or living in a long term (including now)? No 02/09/2025 Personal Safety Answer Date Recorded Have you ever been in or are you currently in a harmful physical or emotional relationship or is someone making you feel afraid or unsafe? 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
--- OUTSIDE RECORDS SUMMARY | 2025-05-18 21:32 | XMS_ITS | Clinical Summary ---
Author Organization [facility] Address [address] [place] [address] Care Team Providers Care Quill Worker Name Role Phone Jhon Jang MD Primary Care Provider [phone] Medications atorvastatin (LIPITOR) 40 MG tablet Take [...] complication, without long-term current use of insulin ([facility] HHS/HCC) Take 1 tablet (25 mg total) by mouth daily. 30 tablet 2 5 Active aspirin EC 81 MG tablet Take 1 tablet (81 mg total) by mouth daily. Active carvedilol (COREG) 6.25 MG tabletIndicatio ns:NSTEMI (non-ST elevated myocardial infarction) ([facility] HHS/HCC) Take 1 tablet (6.25 mg total) by mouth 2 (two) times daily. 60 tablet 2 5 Active metFORMIN ER (GLUCOPHAGE-XR) 500 MG 24 hr tabletIndicatio ns:Type 2 diabetes mellitus without complication, without long-term current use of insulin ([facility]) Take 1 tablet by mouth twice daily 60 tablet 3 5 Active metFORMIN XR (GLUCOPHAGE-XR) 500 MG 24 hr tabletIndicatio ns:Type 2 diabetes mellitus without complication, without long-term current use of insulin ([facility]) Take 1 tablet (500 mg total) by mouth 2 (two) times daily. 60 tablet 2 5 05/14/20 Discontinu ed(Reorder ) Active Problems Problem Noted Date Diagnosed Date Hypotension, unspecified hypotension type 2024 Dyslipidemia associated with type 2 diabetes mellitus ([facility]) 02/09/2025 Assessment & Plan (03/22/2025 1:19 PM CDT): Continue atorvastatin 80mg daily NSTEMI (non-ST elevated myoc ardial infarction) ([facility]) 02/08/2025 Assessment & Plan (03/22/2025 1:19 [...] complication, without long-term current use of insulin ([facility]) 01/27/2023 Assessment & Plan (03/22/2025 1:19 [...] Type 2 diabetes mellitus wit hout complications ([facility]/HCC [facility]) 10/27/2018 02/17/20 25 Encounters Date Type Department Care Team Description 03/25/2025 Scan [facility] Scanned, Doc Med Group 03/22/2025 10:40 AM CDT Office Visit [facility] Medical [facility] Family & Internal Medicine [address] [address] Jhon Jang MD Diabetes (4 wk f/u); Shortness Of Breath 03/22/2025 Travel 03/12/2025 Telephone [facility] Internal [address] [address] Jhon Jang MD Medication Request 02/23/2025 11:20 AM CDT Office Visit [facility] Internal [address] [address] Jhon Jang MD TCM ([facility] D/c-02/19- BP/Last . Pt was blacking out due to BP being so low. Went to ER, pt states they lessened losartan to 25 mg/) 02/23/2025 Travel 02/22/2025 Telephone [facility] Internal [address] [address] Jhon Jang MD TCM 02/17/2025 12:31 PM CDT - 02/17/2025 11:59 PM CDT Hospital Encounter [facility] [address] [place] [phone] Jhon Jang MD Discharge Disposition: Home or Self Care (Routine Discharge) 02/17/2025 10:20 AM CDT Laboratory Only [facility] Internal [address] [phone] Jhon Jang MD 02/16/2025 2:20 PM CDT Office Visit [facility] Family & Internal [address] [phone] Jhon Jang MD Meet and Greet Provider [...] Medical Group Family & Internal Medicine - [address] [address] Jhon Jang MD [address] [place], [place] [id number] Health Maintenance Due Date Last Done Comments [...] Colonoscopy (10 Years) 03/31/2034 03/31/2024 PHQ-2 (Physician [place]) Completed 02/16/2025 Meningococcal B Vaccine Aged Out [...] complication, without long-term current use of insulin ([facility] HHS/HCC) NSTEMI (non-ST elevated myocardial infarction) ([facility] HHS/HCC) Acquired hypothyroidism COMPREHENSIVE METABOLIC PANEL Routine 02/17/2025 10:16 AM CDT Primary hypertension Type 2 diabetes mellitus without complication, without long-term current use of insulin ([facility] HHS/HCC) LIPID PANEL Routine 02/17/2025 10:16 AM CDT NSTEMI (non-ST elevated myocardial infarction) ([facility] HHS/HCC) Type 2 diabetes mellitus without complication, without long-term current use of insulin ([facility] HHS/HCC) TSH W/REFLEX Routine 02/17/2025 10:16 AM CDT Type 2 diabetes mellitus without complication, without long-term current use of insulin ([facility] HHS/HCC) Acquired hypothyroidism ALBUMIN URINE RANDOM W/CREATININE Routine 02/17/2025 10:16 AM CDT Type 2 diabetes mellitus without complication, without long-term current use of insulin ([facility] HHS/HCC) HEMOGLOBIN, GLYCOSYLATED Routine 02/17/2025 10:16 AM CDT Type 2 diabetes mellitus without complication, without long-term current use of insulin ([facility] HHS/HCC) CBC W/DIFF AUTOMATED Routine 02/17/2025 10:16 AM CDT NSTEMI (non-ST elevated myocardial infarction) ([facility]) Type 2 diabetes mellitus without complication, without long-term current use of insulin ([facility]/HCC) COLONOSCOPY GENERIC (SCAN ORDER) 03/31/2024 from Last 3 Months or Most Recently Relevant to Health Maintenance Results * TSH W/REFLEX (02/17/2025 10:16 AM CDT) TSH 2.414 0.358 - 3.74 uIU/ML 02/17/2025 1:42 PM CDT [facility] Comment: HIGH DOSES OF BIOTIN MAY INTERFERE WITH THIS TEST RESULT. CORRELATION TO CLINICAL HISTORY AND PRESENTATION RECOMMENDED. FREE T4 NOT INDICATED 02/17/2025 10:1 6 AM CDT Jhon Jang MD LABORATORY Final Result [facility] [address] [place] [address], * (ABNORMAL) HEMOGLOBIN, GLYCOSYLATED (02/17/2025 10:16 AM CDT) HGB A1C 9.1(H) <5.7 % 02/17/2025 12:56 PM CDT [facility] Comment: INCREASED RISK OF DIABETES <5.7% NON-DIABETES 5.7-6.4% INCREASED RISK FOR FUTURE DIABETES > OR = 6.5 CONSISTENT WITH DIABETES STANDARDS OF MEDICAL CARE IN DIABETES-2010 DIABETES CARE, 33(SUPP 1): S1-S61,2010 ESTIMATED AVG GLUCOSE 214 mg/dL 02/17/2025 12:56 PM CDT [facility] 02/17/2025 10:1 6 AM CDT Jhon Jang MD LABORATORY Final Result Performing Organization Address [facility]/ZIP Co de Phone Number [facility] [address] [place] [address], [place] [phone] * (ABNORMAL) ALBUMIN URINE RANDOM W/CREATININE (02/17/2025 10:16 AM CDT) CREATININE (U) 12.4(L) 28 - 217 MG/DL 02/17/2025 1:30 PM CDT [facility] MICROALBUMIN (U) 0.0 <2.0 mg/dL 02/18/20 1:48 PM CDT [facility] ALBUMIN/CREAT RATIO 0.0 <30.0 MG/G 02/17/2025 1:48 PM CDT [facility] URINE SPECIMEN / Unknown 02/17/2025 10:16 AM CDT Jhon Jang MD URINE ORDERABLES Final Result Performing Organization Address [facility] Co de Phone Number [facility] [address] [place] [address], [place] [phone] * (ABNORMAL) COMPREHENSIVE METABOLIC PANEL (02/17/2025 10:16 AM CDT) GLUCOSE 151(H) 70 - 99 MG/DL 02/17/2025 1:42 PM CDT [facility] BUN 13 7 - 18 MG/DL 02/17/2025 1:42 PM CDT [facility] CREATININE S/P/B 0.57 0.55 - 1.02 MG/DL 02/17/2025 1:42 PM CDT [facility] SODIUM S/P/B 138 136 - 145 MMOL/L 02/17/2025 1:42 PM CDT [facility] POTASSIUM S/P/B 4.2 3.5 - 5.1 MMOL/L 02/17/2025 1:42 PM [facility] CHLORIDE S/P/B 101 100 - 108 MMOL/L 02/17/2025 1:42 PM [facility] CO2 27.6 21 - 32 MMOL/L 02/17/2025 1:42 PM [facility] CALCIUM S/P/B 9.5 8.5 - 10.1 MG/DL 02/17/2025 1:42 PM [facility] BILIRUBIN TOTAL S/P/B 1.0 0.2 - 1.2 MG/DL 02/17/2025 1:42 PM [facility] TOTAL PROTEIN S/P/B 6.9 6.4 - 8.2 G/DL 02/17/2025 1:42 PM [facility] ALBUMIN S/P/B 3.6 3.4 - 5.0 G/DL 02/17/2025 1:42 PM [facility] AST 10(L) 15 - 37 U/L 02/17/2025 1:42 PM [facility] ALT 25 14 - 55 U/L 02/17/2025 1:42 PM [facility] ALKALINE PHOSPHATASE S/P/B 96 50 - 136 U/L 02/17/2025 1:42 PM [facility] ANION GAP 9.4 5 - 15 MMOL/L 02/17/2025 1:42 PM [facility] BUN CREATININE RATIO 22.8 6 - 26 02/17/2025 1:42 PM [facility] A/G RATIO 1.1 1.0 - 2.0 RATIO 02/17/2025 1:42 PM [facility] GFR ESTIMATE >90 >90 ML/MIN/1.7 3 M2 02/17/2025 1:42 PM CDT [facility] Comment: NOTE: eGFR is not calculated for patients <18 years of age. This is an estimated GFR calculation using the new CKD EPI creatinine equation without race and so does not require a correction factor for race. This estimated GFR should not be used for calculating drug doses. 02/17/2025 10:1 6 AM CDT Jhon Jang MD LABORATORY Final Result [facility] [address] [place] [address], * LIPID PANEL (02/17/2025 10:16 AM CDT) CHOLESTEROL 111 <200.0 MG/DL 02/17/2025 1:42 PM CDT [facility] TRIGLYCERIDES 108 <150 MG/DL 02/17/2025 1:42 PM T [facility] HDL 45 >40.0 MG/DL 02/17/2025 1:42 PM T [facility] LDL (CALCULATED) 44 <100 MG/DL 02/18/20 1:42 PM T [facility] NON HDL CHOLESTEROL 66 <130 MG/DL 02/17 1:42 PM T [facility] CHOL/HDL RATIO 2.5 0.0 - 4.5 02/17/2025 1:42 PM T [facility] VLDL CALCULATION 22 5 - 55 MG/DL 02/17/2025 1:42 PM T [facility] LIPID INTERPRETATION 02/17/2025 1:42 PM T [facility] Comment: [facility] REPORT RECOMMENDATIONS: ADULT CHILD LOW RISK: CHOLESTEROL <200 <170 TRIGLYCERIDE <150 --- HDL >=60 --- LDL <100 <110 BORDERLINE: CHOLESTEROL 200-239 170-199 TRIGLYCERIDE 150-199 --- HDL 40-59 --- LDL 100-159 110-129 HIGH RISK: CHOLESTEROL >=240 >=200 TRIGLYCERIDE >=200 --- HDL <40 --- LDL >=160 >=130 02/17/2025 10:1 6 AM CDT Jhon Jang MD LABORATORY Final Result [facility] [address] [place] [address], * (ABNORMAL) CBC W/DIFF AUTOMATED (02/17/2025 10:16 AM CDT) WBC 7.33 4.4 - 11.0 x10'3/uL 02/17/2025 12:42 PM CDT [facility] RBC 3.84(L) 4.50 - 5.10 x10'6/uL 02/17/2025 12:42 PM CDT [facility] HGB 12.4 12.3 - 15.3 G/DL 02/17/2025 12:42 PM CDT [facility] HCT 37.8 35.9 - 44.6 % 02/17/2025 12:42 PM CDT [facility] MCV 98.4(H) 80.0 - 96.0 FL 02/17/2025 12:42 PM CDT [facility] MCH 32.3(H) 25.3 - 30.9 PG 02/17/2025 12:42 PM CDT [facility] MCHC 32.8 31.0 - 34.1 G/DL 02/17/2025 12:42 PM CDT [facility] RDW 13.2 12.4 - 15.1 % 02/17/2025 12:42 PM CDT [facility] PLT 353 151 - 353 x10'3/uL 02/17/2025 12:42 PM CDT [facility] MPV 10.3 9.6 - 12.0 FL 02/17/2025 12:42 PM CDT [facility] RBC MORPHOLOGY NORMAL 02/17/2025 12:42 PM CDT [facility] PLT MORPH. NORMAL 02/17/2025 12:42 PM T [facility] WBC MORPHOLOGY NORMAL 02/17/2025 12:42 PM CDT [facility] LYMPHOCYTES % 16.8 15.8 - 45.0 % 02/17/2025 12:42 PM T [facility] NEUTROPHILS % 72.8(H) 42.1 - 71.9 % 02/17/2025 12:42 PM CDT [facility] MONOCYTES % 6.8 5.7 - 12.5 % 02/17/2025 12:42 PM T [facility] EOSINOPHILS 2.9 0.0 - 5.6 % 02/17/2025 12:42 PM CDT [facility] BASOPHILS 0.4 0.0 - 1.3 % 02/17/2025 12:42 PM CDT [facility] ABS. NEUTROPHILS 5.34 1.40 - 6.00 x10'3/uL 02/17/2025 12:42 PM T [facility] IMMATURE GRANS % 0.3 0.0 - 0.5 % 02/17/2025 12:42 PM T [facility] ABS. LYMPHOCYTES 1.23 0.80 - 4.70 x10'3/uL 02/17/2025 12:42 PM T [facility] 02/17/2025 10:1 6 AM CDT us Jhon Jang MD LABORATORY Final Result [facility] [address] [place] [address], * COLONOSCOPY GENERIC (SCAN ORDER) (03/31/2024) 03/31/2024 us Doc [facility] Scanned SCANNING Final Resu lt from Last 3 Months or Most Recently Relevant to Health Maintenance Insurance [employer] Care Teams Quill Worker Relationship Specialty [place] [address] [place] [address] PCP - General INTERNAL MEDICINE 02/10/25
[2025-05-18 21:56] LABS: Hematocrit 38.5 % (37.0-47.0); Hemoglobin 12.4 g/dL (12.0-15.0); Immature Granulocyte Percent A 0.3 % (0-0.5); Lymphocytes Absolute Auto 1.56 K/mm3 (0.9-3.2); Mean Corpuscular HGB Conc 32.2 g/dl (32-36); Mean Corpuscular Hemoglobin 31.7 pg (26-34); Mean Corpuscular Volume 98.5 fl (80-100); Nucleated Red Blood Cells Absolute Auto 0.000 K/mm3 (0.0-0.012); Nucleated Red Blood Cells Perc 0.0 % (0.0-0.2); Platelet Count Result 247 k/mm3 (150-375); Red Blood Count 3.91 M/mm3 (4.2-5.4); White Blood Count 6.8 K/mm3 (4.5-10.0)
[2025-05-18 22:07] LABS: INR 0.9; Partial Thromboplastin Time 29.0 Seconds (22.3-36.8); Prothrombin Time 12.5 Seconds (11.1-14.7)
[2025-05-18 22:20] VITALS: BP 143/88; PULSE 79; RESP 15; O2SAT 100
[2025-05-18 22:48] VITALS: BP 143/88; PULSE 79; RESP 15; O2SAT 100
== END 2025-05-18 22:50 | disposition home or self-care (01) ==
PROVIDERS: Emergency Provider Physician Assistant; PCP Internal Medicine Cardiovascular Disease
DX: S01.552A Open bite of oral cavity, initial encounter (principal); R23.3 Spontaneous ecchymoses; E11.9 Type 2 diabetes mellitus without complications; I25.10 Atherosclerotic heart disease of native coronary artery without angina pectoris; Z79.02 Long term (current) use of antithrombotics/antiplatelets; X58.XXXA Exposure to other specified factors, initial encounter
CPT/HCPCS: 36415; 85025; 85610; 85730; 99283

== ENCOUNTER 2025-07-28 11:30 | Outpatient (RCR) | payer MEDICARE, SELFPAY ==
[2025-03-30 11:51] VITALS: PULSE 78
== END 2025-07-28 23:59 | disposition home or self-care (01) ==
LOC: ANHCPREHAB 11:30
PROVIDERS: PCP Internal Medicine Cardiovascular Disease; Visit Provider Internal Medicine Cardiovascular Disease
DX: Z98.61 Coronary angioplasty status (principal)
CPT/HCPCS: 93798

== ENCOUNTER 2025-08-26 10:00 | Outpatient (RCR) | payer MEDICARE, SELFPAY | END 2025-08-31 09:08 | disposition home or self-care (01) | LOC: ANHCPREHAB 10:00 | PROVIDERS: PCP Internal Medicine Cardiovascular Disease; Visit Provider Internal Medicine Cardiovascular Disease | DX: Z95.5 Presence of coronary angioplasty implant and graft (principal) | CPT/HCPCS: 93798 ==